=== PATIENT | male | born 1950 | race Caucasian/White ===

== ENCOUNTER → 2022-02-24 09:03 | Outpatient (BNVA) | payer MEDICARE, OTHER, SELFPAY | PROVIDERS: PCP Family Medicine; Visit Provider Psychiatry & Neurology Psychiatry | DX: Z79.899 Other long term (current) drug therapy (principal) | CPT/HCPCS: 80053; 80061; 80164; 83036; 84443; 85025 ==

== ENCOUNTER → 2022-03-31 14:30 | Outpatient (BNVA) | payer MEDICARE, SELFPAY | PROVIDERS: PCP Family Medicine; Referring Provider Family Medicine; Visit Provider Internal Medicine | DX: I95.9 Hypotension, unspecified (principal); F31.9 Bipolar disorder, unspecified; G47.33 Obstructive sleep apnea (adult) (pediatric); Z99.89 Dependence on other enabling machines and devices | CPT/HCPCS: 99203; 99204; 99213; 99214 ==

== ENCOUNTER 2022-04-01 12:19 | Emergency (ER) | payer MEDICARE, SELFPAY ==
[2022-04-01 12:28] VITALS: BP 123/75; PULSE 90; RESP 16; TEMP 37.6; O2SAT 96; BMI 36.1
--- NOTE | 2022-04-01 14:46 | W.ED.GENADLT ---
HPI - General Adult General: Chief complaint: Abdominal Pain Stated complaint: diverticulitis issues Time Seen by Provider: 04/01/22 12:42 History of Present Illness: Patient is a 71-year-old male with a history of prior diverticulitis, exploratory laparotomy for lysis of adhesions, appendectomy, pylorectomy who presents the emergency room for concerns of lower abdominal pain. Patient tells me he first began having lower pain around 9 PM yesterday. Patient states that the pain is sharp constant on both sides in the lower quadrant. Patient denies any urinary complaints including hematuria, polyuria or dysuria. Patient denies any flank pain or prior history of renal colic. Patient reports nausea with retching without any active vomiting. Patient has any fever/chills. Patient reports the pain is not worse with position or p.o. intake. Patient denies any diarrhea melena hematochezia. No other focal complaints at this time. No complaints. Onset:9pm yesterday Duration: ongoing Location:home Severity:moderate Associated symptoms: Reports nausea; Deny chest pain, dyspnea, rash, palpitations or vomiting Review of Systems Const: Denies: fever(s) or chills Eyes: Denies: change in vision ENMT: Denies: mouth pain Card: Denies: chest pain or palpitations Resp: Denies: dyspnea or non-productive cough GI: Reports: abdominal pain (+sharp lower abd pain) and nausea; Denies: vomiting or diarrhea : Denies: dysuria Musc: Denies: extremity pain Skin/Breast: Denies: rash or new lesions Neuro: Denies: weakness in extremities Psych: Reports: other (Normal mood) Saeed/Lymph: Denies: easy bruising PFSH ED PFSH: Medical History ADHD Bipolar 1 disorder Essential tremor History of diverticulitis Insomnia DERIK on CPAP Psychiatric care Restless legs Surgical History History of appendectomy History of cholecystectomy Social History Smoking and tobacco status: never smoked Physical Exam Const: COMMON NORMALS: alert HENMT: COMMON NORMALS: atraumatic HEAD & SCALP: atraumatic MOUTH: moist mucous membranes not abnormal Eye: COMMON NORMALS: EOMs intact bilaterally and conjunctivae normal CONJUNCTIVA: Yes conjunctivae normal Neck/C-Spine: COMMON NORMALS: full ROM and supple Resp: COMMON NORMALS: normal respiratory effort and clear to auscultation bilaterally AUSCULTATION: clear to auscultation bilaterally Cardio: COMMON NORMALS: regular rate RATE: regular rate GI: COMMON NORMALS: Soft to palpation PALPATION: Yes Soft to palpation OTHER: +Moderate RLQ and LLQ abd tenderness to palpation. +Voluntary guarding in the LLQ. NO guarding rebound, guarding, rigidity. No CVA tenderness to percussion. Neg Purcell/Neg McBurney's point tenderness, no suprabupic tenderness to palpation. Extremity: COMMON NORMALS: full ROM Neuro: SENSORIUM/ORIENTATION: Yes alert MOTOR EXAM: No Abnormal motor strength present and Other motor observations present (no focal motor deficits) Psych: COMMON NORMALS: speech normal SPEECH: Yes normal speech MOOD & AFFECT: Yes euthymic mood Course Vital Signs: Vital signs: Vital Signs Temperature 99.7 F H 04/01/22 12:28 Pulse Rate 90 04/01/22 12:28 Respiratory Rate 15 04/01/22 15:21 Blood Pressure 123/75 04/01/22 12:28 Pulse Oximetry 95 04/01/22 15:21 Oxygen Delivery Me thod 04/01/22 12:28 [facility] - General Adult Medical Decision Making Patient is a 71-year-old male with a history of prior diverticulitis, exploratory laparotomy for lysis of adhesions, appendectomy, pylorectomy who presents the emergency room for concerns of lower abdominal pain. Per history moderate and per palpation the right lower quadrant left lower quadrant. Patient is noted to have white count 13.0. Patient received IVF and morphine with improvement in pain. CT abdomen pelvis showed enterocolitis without any finding of appendicitis or diverticulitis. I discussed this finding with patient. Patient received GI cocktail is able to tolerate p.o. without difficulty. Considered appendicitis however unlikely at this time given lack of signs and sx's to suggest appendicitis as etiology. Pt counseled that appendicitis may later develop and given appendicitis precautions and instructed to return if any development of RLQ tenderness, worsening or continued abdominal pain, or any fevers, chills, nausea, vomiting, or any other concerning signs or symptoms. Rx tylenol PRN abd pain, maalox/pepcid PRN dyspepsia, and zofran PRN nausea/vomiting Disposition: Discharge. Patient counseled regarding diagnostic impression, treatment plan. Patient given ED strict return precautions to return for continuation, worsening, or development of new symptoms. Instructed to f/u w/ PCP regarding symptoms today. Patient verbalized understanding. Lab Data : 04/01/22 14:57 04/01/22 14:57 Radiology Impressions Abdomen/Pelvis CT 04/01/22 14:46 IMPRESSION: 1. Mildly prominent fluid in the small bowel and colon with some mild ascending colon wall thickening suspected perhaps reflecting a mild enterocolitis in the appropriate clinical setting. 2. Bibasilar atelectasis versus minimal infiltrate. 3. Minimal pneumobilia suspected in the left hepatic lobe. 4. Cholecystectomy. Laboratory Results WBC 13.0 10^3/uL (4.0-10.0) H 04/01/22 14:57 RBC 4.52 10^6/uL (4.1-5.3) 04/01/22 14:57 Hgb 15.0 g/dL (11.7-16.6) 04/01/22 14:57 Hct 43.0 % (42.0-52.0) 04/01/22 14:57 MCV 95.1 fl (80-94) H 04/01/22 14:57 MCH 33.2 pg (28.0-34.0) 04/01/22 14:57 MCHC 34.9 g/dL (30.0-36.0) 04/01/22 14:57 RDW 13.6 % (12.1-15.1) 04/01/22 14:57 Plt Count 114 10^3/cmm (130-400) L 04/01/22 14:57 MPV 10.9 fL (7.4-10.4) H 04/01/22 14:57 Neut % (Auto) 80.7 % 04/01/22 14:57 Lymph % (Auto) 8.6 % 04/01/22 14:57 [place] % (Auto) 10.3 % 04/01/22 14:57 Eos % (Auto) 0.0 % 04/01/22 14:57 Baso % (Auto) 0.2 % 04/01/22 14:57 Neut # (Auto) 10.46 10^3/uL (1.8-7.7) H 04/01/22 14:57 Lymph # (Auto) 1.1 10^3/uL (0.8-4.8) 04/01/22 14:57 [place] # (Auto) 1.3 10^3/uL (0.2-0.9) H 04/01/22 14:57 Eos # (Auto) 0.0 10^3/uL (0.0-0.8) 04/01/22 14:57 Baso # (Auto) 0.0 10^3/uL (0.0-0.1) 04/01/22 14:57 Nucleated RBC % (auto) 0 % 04/01/22 14:57 Nucleated RBCs # 0.0 /100WBC 04/01/22 14:57 Sodium 136 mmol/L (136-145) 04/01/22 14:57 Potassium 3.7 mmol/L (3.5-5.1) 04/01/22 14:57 Chloride 97 mmol/L (98-107) L 04/01/22 14:57 Carbon Dioxide 27 mmol/L (22-29) 04/01/22 14:57 Anion Gap 15.7 (5-19) 04/01/22 14:57 BUN 11 mg/dL (8-23) 04/01/22 14:57 Creatinine 0.7 mg/dL (0.7-1.2) 04/01/22 14:57 GFR Calculation 111.5 mL/min (90-130) 04/01/22 14:57 Glucose 141 mg/dL (65-115) H 04/01/22 14:57 Calculated Osmolality 284 mOsm/kg (285-295) L 04/01/22 14:57 Calcium 9.0 mg/dL (8.5-10.5) 04/01/22 14:57 Total Bilirubin 1.3 mg/dL (0.15-1.2) H 04/01/22 14:57 AST 18 U/L (0-40) 04/01/22 14:57 ALT 15 U/L (0-41) 04/01/22 14:57 Alkaline Phosphatase 77 U/L (40-130) 04/01/22 14:57 Total Protein 7.0 g/dL (6.6-8.7) 04/01/22 14:57 Albumin 3.9 g/dL (3.5-5.2) 04/01/22 14:57 Globulin 3.1 g/dL (1.3-4.6) 04/01/22 14:57 Lipase 10 U/L (13-60) L 04/01/22 14:57 Urine Color Yellow (Yellow) 04/01/22 15:00 Urine Appearance Clear (CLEAR) 04/01/22 15:00 Urine pH 6.5 (5-7) 04/01/22 15:00 Ur Specific [place] 1.010 (1.005-1.030) 04/01/22 15:00 Urine Protein Neg (Negative) 04/01/22 15:00 Urine Glucose (UA) 1+ (Normal) H 04/01/22 15:00 Urine Ketones 1+ (Negative) H 04/01/22 15:00 Urine Blood Neg (Negative) 04/01/22 15:00 Urine Nitrate Negative (Negative) 04/01/22 15:00 Urine Bilirubin Neg (Negative) 04/01/22 15:00 Urine Urobilinogen Neg mg/dL (Negative) 04/01/22 15:00 Ur Leukocyte Esterase Trace (Negative) H 04/01/22 15:00 Urine RBC None /hpf (0-2) 04/01/22 15:00 Urine WBC None /hpf (0-5) 04/01/22 15:00 Ur Squamous Epith Cells None /hpf (0-5) 04/01/22 15:00 Amorphous Sediment Not Reportable 04/01/22 15:00 Urine Bacteria None /hpf (NONE) 04/01/22 15:00 Imaging Data Other Imaging: Radiologist's impression: [address] [address] [address] Scan Report Signed Patient: Jordan Snider Unit #: [id number] : 1950 Age/Sex: 71 / M ADM Date: 04/01/22 Loc: ER Room/Bed: Attending Dr: Ordering Provider/Ordering MD: Richard Chun MD Date of Service: 04/01/22 Procedure(s): CT abdomen pelvis w con* [id number] Accession Number(s): [id number] Report Number: [id number] PROCEDURE INFORMATION: Exam: CT Abdomen And Pelvis With Contrast Exam date and time: 04/01/2022 3:28 PM Age: 71 years old Clinical indication: Abdominal pain; Generalized; Prior surgery; Surgery date: 6+ months; Surgery type: Appy, choleycystectomy; Additional info: Abd pain TECHNIQUE: Imaging protocol: Computed tomography of the abdomen and pelvis with contrast. Radiation optimization: All CT scans at this facility use at least one of these dose optimization techniques: automated exposure control; mA and/or kV adjustment per patient size (includes targeted exams where dose is matched to clinical indication); or iterative reconstruction. Contrast material: OMNI 350; Contrast volume: 100 ml; Contrast route: INTRAVENOUS (IV);? COMPARISON: No relevant prior studies available. RADIATION DOSE METRICS: Total DLP (mGy-cm): 1152.93 FINDINGS: Lungs: Bibasilar atelectasis versus minimal infiltrate. Liver: Normal. No mass. Gallbladder and bile ducts: Minimal pneumobilia suspected in the left hepatic lobe. Cholecystectomy. Pancreas: Normal. No ductal dilation. Spleen: Normal. No splenomegaly. Adrenal glands: Normal. No mass. Kidneys and ureters: Normal. No hydronephrosis. Stomach and bowel: Mildly prominent fluid in the small bowel and colon with some mild ascending colon wall thickening suspected perhaps reflecting a mild enterocolitis in the appropriate clinical setting. Appendix: No evidence of appendicitis. Intraperitoneal space: Unremarkable. No free air. No significant fluid collection. Vasculature: Unremarkable. No abdominal aortic aneurysm. Lymph nodes: Unremarkable. No enlarged lymph nodes. Urinary bladder: Unremarkable as visualized. Reproductive: Unremarkable as visualized. Bones/joints: Unremarkable. No acute fracture. Soft tissues: Unremarkable. CT/CT abdomen pelvis w con* [id number] IMPRESSION: 1. Mildly prominent fluid in the small bowel and colon with some mild ascending colon wall thickening suspected perhaps reflecting a mild enterocolitis in the appropriate clinical setting. 2. Bibasilar atelectasis versus minimal infiltrate. 3. Minimal pneumobilia suspected in the left hepatic lobe. 4. Cholecystectomy. ? Dictated By: Ash Hair MD Signed By: Ash Hair MD Signed Date/Time: 04/01/22 1555 DD/ 1528 Discharge Plan Discharge Patient Disposition: Home Clinical Impression: Abdominal pain Condition: Stable Prescriptions: New acetaminophen 500 mg tablet 500 mg PO Q6H PRN (Reason: pain) 5 Days Qty: 20 0RF Pepcid 20 mg tablet 20 mg PO BID PRN (Reason: abdominal pain) 10 Days Qty: 20 0RF ondansetron 4 mg tablet,disintegrating 4 mg PO TID PRN (Reason: nausea and vomiting) 4 Days Qty: 12 0RF Maalox Advanced 1,000-60 mg tablet,chewable 1 tab PO TID PRN (Reason: abdominal pain) 7 Days Qty: 21 0RF No Action aspirin 81 mg tablet,delayed release (DR/EC) 81 mg PO BEDTIME celecoxib 100 mg capsule 100 mg PO BID duloxetine 60 mg capsule,delayed release(DR/EC) 60 mg PO DAILY gabapentin 600 mg tablet 1,200 mg PO QPM tizanidine 4 mg capsule 4 mg PO BID methylphenidate HCl 10 mg tablet 10 mg PO TID 30 Days Qty: 90 0RF Depakote ER 250 mg tablet extended release 24 hr 1,250 mg PO BEDTIME eszopiclone 3 mg tablet 3 mg PO BEDTIME Vitamin B-12 50 mcg Tablet 50 mcg PO DAILY iron 325 mg (65 mg iron) Tablet 325 mg PO DAILY Vitamin D3 25 mcg (1,000 unit) Tablet 25 mcg PO DAILY Beet Root 1 tab PO DAILY Discharge Orders: Discharge ED (Routine); Ordered 04/01/22 Ordered By: Richard Chun Referrals: Salvatore Leon MD [Primary Care Provider] - Discharge Diet: Advance as tolerated Discharge Activity: Increase activity as tolerated Patient Instructions: Abdominal Pain (ED) Activity Restrictions/Additional Instructions: Please come back if you have any worsening abdominal pain, fever or chills, nausea or vomiting, diarrhea, blood in the stool, inability hold down liquid or solids, or any new concerning complaints. 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
[2022-04-01 15:03] LABS: Basophils % 0.2 %; Lymphocytes # 1.1 10^3/uL (0.8-4.8); Lymphocytes % 8.6 %; Mean Corpuscular HGB Conc 34.9 g/dL (30.0-36.0); Mean Corpuscular Hemoglobin 33.2 pg (28.0-34.0); Mean Corpuscular Volume 95.1 fl (80-94); Mean Platelet Volume 10.9 fL (7.4-10.4); Monocytes # 1.3 10^3/uL (0.2-0.9); Monocytes % 10.3 %; Neutrophils # 10.46 10^3/uL (1.8-7.7); Neutrophils % 80.7 %; Nucleated Red Blood Cells % 0 %; Platelet Count 114 10^3/cmm (130-400); Red Blood Count 4.52 10^6/uL (4.1-5.3); Red Cell Distribution Width 13.6 % (12.1-15.1)
[2022-04-01 15:16] LABS: Add Urine Microscopic? YES; Bilirubin Urine Neg (Negative); Blood Urine Neg (Negative); Glucose Urine UA 1+ (Normal); Ketones Urine 1+ (Negative); Leukocyte Esterase Urine Trace (Negative); Nitrate Urine Negative (Negative); Protein Urine Neg (Negative); Urine Appearance Clear (CLEAR); Urine Color Yellow (Yellow); Urobilinogen Urine Neg (Negative); pH Urine 6.5 (5-7)
[2022-04-01] MEDS: sodium chloride 0.9% 1,000 ML 999 ML IV (15:20)
[2022-04-01 15:21] VITALS: RESP 15; O2SAT 95
[2022-04-01 15:21] LABS: Add Urine Culture? No
[2022-04-01] MEDS: ondansetron 2 mg/ML SDV 2 mL 4 MG IVP (15:21)
[2022-04-01] MEDS: morphine 4 mg/mL SDV 1 mL IVP (15:21)
[2022-04-01 15:24] LABS: Alanine Aminotransferase 15 U/L (0-41); Albumin Level 3.9 g/dL (3.5-5.2); Alkaline Phosphatase 77 U/L (40-130); Anion Gap 15.7 (5-19); Aspartate Amino Transferase 18 U/L (0-40); Blood Urea Nitrogen 11 mg/dL (8-23); Carbon Dioxide 27 mmol/L (22-29); Chloride 97 mmol/L (98-107); Globulin 3.1 g/dL (1.3-4.6); Glomerular Filtration Rate 111.5 mL/min (90-130); Glucose 141 mg/dL (65-115); Lipase 10 U/L (13-60); Osmolality Calculated 284 mOsm/kg (285-295); Potassium 3.7 mmol/L (3.5-5.1); Sodium 136 mmol/L (136-145); Total Bilirubin 1.3 mg/dL (0.15-1.2)
[2022-04-01] MEDS: iohexol 350 mg/mL 100 mL Btl IV (15:34)
[2022-04-01 16:03] VITALS: BP 142/88; PULSE 89; RESP 15; O2SAT 97
[2022-04-01] MEDS: lidocaine 2% viscous 15 ML, aluminum-mag hydrox-simethicon 30 ML, sucralfate oral liq 1 GM PO (16:33)
== END 2022-04-01 16:38 | disposition home or self-care (01) ==
PROVIDERS: Family Medicine; Emergency Provider Emergency Medicine; PCP Family Medicine
DX: R10.9 Unspecified abdominal pain (principal); Z79.82 Long term (current) use of aspirin
CPT/HCPCS: 74177; 80053; 81001; 83690; 85025; 96361; 96374; 96375; 99285; J2270; J2405; J7030; Q9967

== ENCOUNTER → 2022-04-14 13:39 | Outpatient (BNVA) | payer MEDICARE, SELFPAY | PROVIDERS: PCP Family Medicine; Visit Provider Family Medicine | DX: R53.83 Other fatigue (principal); Z87.19 Personal history of other diseases of the digestive system; I95.9 Hypotension, unspecified; F90.9 Attention-deficit hyperactivity disorder, unspecified type | CPT/HCPCS: 82607; 83880; 85025; 86140 ==

== ENCOUNTER → 2022-08-08 12:41 | Outpatient (BNVA) | payer MEDICARE, SELFPAY | PROVIDERS: PCP Family Medicine; Visit Provider Psychiatry & Neurology Psychiatry | DX: Z79.899 Other long term (current) drug therapy (principal) | CPT/HCPCS: 80053; 80164; 85025 ==

== ENCOUNTER → 2022-09-12 09:41 | Outpatient (BNVA) | payer MEDICARE, SELFPAY | PROVIDERS: PCP Family Medicine; Visit Provider Nurse Practitioner Family | DX: M25.571 Pain in right ankle and joints of right foot (principal); E16.2 Hypoglycemia, unspecified | CPT/HCPCS: 73610; 82962; 83036 ==

== ENCOUNTER → 2022-09-30 10:09 | Outpatient (BNVA) | payer MEDICARE, SELFPAY | PROVIDERS: PCP Family Medicine; Visit Provider Internal Medicine | DX: I95.9 Hypotension, unspecified (principal); F31.9 Bipolar disorder, unspecified; G47.33 Obstructive sleep apnea (adult) (pediatric); Z99.89 Dependence on other enabling machines and devices; Z79.82 Long term (current) use of aspirin | CPT/HCPCS: 99214 ==

== ENCOUNTER 2022-10-17 15:58 | Outpatient (CLI) | payer MEDICARE, SELFPAY ==
--- NOTE | 2022-10-17 16:07 | XRR_ITS ---
PROCEDURE INFORMATION: Exam: XR Left Knee Exam date and time: 10/17/2022 4:09 PM Age: 72 years old Clinical indication: Injury or trauma; Fall; Blunt trauma; Knee; Left; Additional info: W19. Xxxa - unspecified fall, initial encounter TECHNIQUE: Imaging protocol: Radiologic exam of the left knee. Views: 3 views. COMPARISON: No relevant prior studies available. FINDINGS: Bones/joints: There is advanced osteoarthritis of the left knee with severe narrowing of the medial joint space in the patellofemoral space and with marginal osteophytes from all 3 compartments. No fracture is identified. Soft tissues: Normal. XR/XR knee LT 3V* [id number] IMPRESSION: 1. No fracture is identified. 2. Osteoarthritis.
--- NOTE | 2022-10-17 16:07 | XRR_ITS ---
PROCEDURE INFORMATION: Exam: XR Left Hip Exam date and time: 10/17/2022 4:09 PM Age: 72 years old Clinical indication: Hip pain; Left hip; Additional info: W19. Xxxa - unspecified fall, initial encounter TECHNIQUE: Imaging protocol: Radiologic exam of the left hip. Views: 2 or 3 views hip with pelvis when performed. COMPARISON: CT abdomen pelvis w con* [id number] 04/01/2022 3:28 PM FINDINGS: Bones/joints: There are degenerative changes in the lower lumbar spine. There is no evidence of fracture or dislocation. Soft tissues: Unremarkable. XR/XR hip LT 2-3V wo/w pel* [id number] IMPRESSION: There is no evidence of fracture or dislocation.
== END 2022-10-17 15:59 | disposition home or self-care (01) ==
LOC: RAD 16:07
PROVIDERS: PCP Family Medicine; Visit Provider Emergency Medicine
DX: M25.552 Pain in left hip (principal); Z91.81 History of falling; M17.12 Unilateral primary osteoarthritis, left knee
CPT/HCPCS: 73502; 73562

== ENCOUNTER → 2022-10-25 13:12 | Outpatient (BNVA) | payer MEDICARE, SELFPAY | PROVIDERS: PCP Family Medicine; Visit Provider Surgery | DX: Z86.010 Personal history of colon polyps (principal) | CPT/HCPCS: 99203 ==

== ENCOUNTER 2022-11-16 07:45 | Day surgery (SDC) | payer MEDICARE, SELFPAY ==
[2022-11-15 10:50] VITALS: BMI 37.0
[2022-11-16 08:03] VITALS: BP 138/81; PULSE 66; RESP 16; TEMP 36.2; O2SAT 99
[2022-11-16] MEDS: sodium chloride 0.9% 1,000 ML 30 ML IV (08:15)
--- NOTE | 2022-11-16 08:27 | W.PM.OPSUD ---
Surgery/Procedure H&P Update DATE OF PROCEDURE: November 16, 2022 DATE H&P PERFORMED: 10/25/22 H&P UPDATE INFORMATION: I have reviewed H&P completed within last 30 days, I have examined patient prior to procedure and No changes to prior documentation PLANNED PROCEDURE: Operation Date: 11/16/22 09:30 Proposed Procedures p Colonoscopy 65568,Z12.11, EGD 88434, D50.9(Not Applicable) - DO niranjan White EGD(Not Applicable) - Robb Elkins DO
--- NOTE | 2022-11-16 09:01 | P.ANESASSM_ITS ---
Pre-Anesthetic Assessment Height/Weight: Height 1.78 m Weight 117.027 kg Temp Pulse Resp BP Pulse Ox O2 Del Method 97.1 F L 66 16 138/81 99 Room Air 11/16/22 08:03 11/16/22 08:03 11/16/22 08:03 11/16/22 08:03 11/16/22 08:03 11/16/22 08:03 Preop Diagnosis: screening Operation Date: 11/16/22 09:30 Proposed Procedures p Colonoscopy 13651,Z12.11, EGD 91189, D50.9(Not Applicable) - Robb Elkins DO s EGD(Not Applicable) - Robb Elkins DO Familial anesthetic complications: none Last intake: Intake Last Liquid Date 11/15/22 Last Liquid Time 22:00 Last Solid Date 11/14/22 Last Solid Time 22:00 Social No alcohol and No tobacco Exam alert, oriented x 3, clear to auscultation bilaterally and regular rate & rhythm Airway Submandibular: within normal limits Cervical ROM: within normal limits Mallampati: Class II Dentition: false Pulmonary Sleep Apnea CV/HEM Congestive Heart Failure hypotension None reported Hepatic None reported GI Gastroesophageal Reflux Disease Metabolic None reported Musc/skel Weakness (cane) Neuropsych Bipolar Anesthetic Plan ASA status: 3 Anesthesia: MAC Medications/Allergies Home Medications Medication Instructions Recorded Confirmed Last Taken Type aspirin 81 mg tablet,delayed 81 mg PO BEDTIME 02/08/22 11/16/22 11/14/22 History release celecoxib 100 mg capsule 100 mg PO BID 02/08/22 11/16/22 11/14/22 History tizanidine 4 mg capsule 4 mg PO BID 02/08/22 11/16/22 11/15/22 History Beet Root 1 tab PO DAILY 04/01/22 11/16/22 11/15/22 History cholecalciferol (vitamin D3) 25 25 mcg PO DAILY 04/01/22 11/16/22 11/15/22 History mcg (1,000 unit) tablet (Vitamin D3) cyanocobalamin (vitamin B-12) 50 50 mcg PO DAILY 04/01/22 11/16/22 11/15/22 History mcg tablet (Vitamin B-12) gabapentin 600 mg tablet 1,200 mg PO QPM #60 tabs 06/03/22 11/16/22 11/15/22 Rx divalproex 250 mg tablet,extended 1,250 mg PO BEDTIME 30 days #150 06/22/22 11/16/22 11/15/22 Rx release 24 hr (Depakote ER) tabs duloxetine 60 mg capsule,delayed 60 mg PO DAILY 30 days #30 caps 06/22/22 11/16/22 11/15/22 Rx release eszopiclone 3 mg tablet 3 mg PO BEDTIME 30 days #30 tabs 06/22/22 11/16/22 11/15/22 Rx methylphenidate HCl 10 mg tablet 10 mg PO TID 30 days #90 tabs 06/22/22 11/16/22 11/15/22 Rx tadalafil 10 mg tablet (Cialis) 10 mg PO DAILY PRN sexual activity 08/18/22 11/16/22 3 Months Ago Rx #20 tabs ~08/18/22 hydrocodone 5 mg-acetaminophen 325 1 tab PO Q6H PRN pain 5 days #20 10/17/22 11/16/22 11/15/22 Rx mg tablet tabs prednisone 20 mg tablet 60 mg PO DAILY 5 days #15 tabs 10/17/22 11/16/22 11/15/22 Rx pantoprazole 40 mg tablet,delayed 40 mg PO BID 6 weeks #84 tabs 11/16/22 Unknown Rx release (Protonix) Allergies Allergy/AdvReac Type Severity Reaction Status Date / Time quetiapine [From Seroquel] Allergy ADR-Halluci Verified 11/16/22 07:59 nating bupropion [From Wellbutrin] AdvReac Intermediate tremor Verified 11/16/22 07:59 ziprasidone [From Geodon] AdvReac Intermediate tremor Verified 11/16/22 07:59 erythromycin Allergy Intermediate can't Uncoded 11/16/22 07:59 swallow Current Medications Generic Name Dose Route Start Last Admin Trade Name Freq PRN Reason Stop Dose Admin Sodium Chloride 1,000 mls @ 30 mls/hr 11/16/22 08:00 11/16/22 08:15 Sodium Chloride 0.9% IV 11/17/22 07:59 30 mls/hr .Q24H ALEXI Administration PFSH Anesthesia Medical History (Updated 10/25/22 @ 14:26 by Robb Elkins DO) ADHD Bipolar 1 disorder Essential tremor History of colon polyps History of diverticulitis Insomnia DERIK on CPAP 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
[2022-11-16 10:03] VITALS: BP 114/74; PULSE 66; RESP 14; TEMP 36.2; O2SAT 94
[2022-11-16 10:10] VITALS: BP 141/84; PULSE 73; RESP 16; O2SAT 98
[2022-11-16 10:19] VITALS: BP 137/86; PULSE 67; RESP 18; O2SAT 100
--- NOTE | 2022-11-16 14:12 | ANE.PACU2 ---
Inpatient post-anesthesia follow up: Airway intact: Yes Vital signs: Temperature 97.1 F Pulse Rate 67 Respiratory Rate 18 Blood Pressure 137/86 Pulse Oximetry 100 Oxygen Delivery Me thod Room Air Oxygen Flow Rate 3 Fraction of Inspir ed Oxygen Hydration adequate: Yes Nausea and vomiting: No Pain level: 2 Mental status: Baseline
== END 2022-11-16 10:50 | disposition home or self-care (01) ==
PROVIDERS: PCP Family Medicine; Visit Provider Surgery
PROC: 0DJD8ZZ Inspection of Lower Intestinal Tract, Via Natural or Artificial Opening Endoscopic (ICD-10-PCS; CPT 45378; principal; 2022-11-16 09:30)
PROC: 0DJ08ZZ Inspection of Upper Intestinal Tract, Via Natural or Artificial Opening Endoscopic (ICD-10-PCS; CPT 43235; 2022-11-16 09:30)
DX: Z86.010 Personal history of colon polyps (principal); K21.9 Gastro-esophageal reflux disease without esophagitis; R13.10 Dysphagia, unspecified; Z12.11 Encounter for screening for malignant neoplasm of colon; I50.9 Heart failure, unspecified; F31.9 Bipolar disorder, unspecified; Z79.82 Long term (current) use of aspirin; Z79.891 Long term (current) use of opiate analgesic; K29.70 Gastritis, unspecified, without bleeding; K57.30 Diverticulosis of large intestine without perforation or abscess without bleeding; D64.9 Anemia, unspecified
CPT/HCPCS: 43239; 88305; 88342; G0121; J2704; J7030

== ENCOUNTER → 2022-11-30 16:23 | Outpatient (BNVA) | payer MEDICARE, SELFPAY | PROVIDERS: PCP Family Medicine; Visit Provider Surgery | DX: Z09 Encounter for follow-up examination after completed treatment for conditions other than malignant neoplasm (principal) | CPT/HCPCS: 99212 ==

== ENCOUNTER → 2023-02-22 14:56 | Outpatient (BNVA) | payer MEDICARE, SELFPAY | PROVIDERS: PCP Family Medicine; Referring Provider Nurse Practitioner Family; Visit Provider Specialist | DX: M17.12 Unilateral primary osteoarthritis, left knee (principal) | CPT/HCPCS: 73560; 73565; 99204 ==

== ENCOUNTER 2023-03-06 06:00 | Outpatient (RCR) | payer MEDICARE, SELFPAY | END 2023-03-25 23:59 | disposition home or self-care (01) | LOC: MPT 06:00 | PROVIDERS: Visit Provider Specialist | DX: M25.562 Pain in left knee (principal) | CPT/HCPCS: 97110; 97162; G0283 ==

== ENCOUNTER 2023-03-26 06:00 | Outpatient (RCR) | payer MEDICARE, SELFPAY | END 2023-04-06 23:59 | disposition home or self-care (01) | LOC: MPT 06:00 | PROVIDERS: PCP Family Medicine; Visit Provider Specialist | DX: M25.562 Pain in left knee (principal) | CPT/HCPCS: 97110; G0283 ==

== ENCOUNTER → 2023-04-05 09:59 | Outpatient (BNVA) | payer MEDICARE, SELFPAY | PROVIDERS: PCP Family Medicine; Visit Provider Anesthesiology Pain Medicine | DX: M51.16 Intervertebral disc disorders with radiculopathy, lumbar region; M17.12 Unilateral primary osteoarthritis, left knee | CPT/HCPCS: 99204 ==

== ENCOUNTER 2023-04-19 10:34 | Emergency (ER) | payer MEDICARE, SELFPAY ==
--- NOTE | 2023-04-19 11:01 | CT_ITS ---
WS: [id number] CT HEAD NONCONTRAST HISTORY: left sided paresthesia TECHNIQUE: Contiguous axial imaging performed through the brain in 2.5 mm imaging. Bone and soft tiss ue windows. Sagittal and coronal reformats reviewed. All CT scans at [facility] use at least one of these dose optimization techniques: automated exposure control; mA and/or kV adjustment per pa tient size (includes targeted exams where dose is matched to clinical indication); or iterative recon struction. DLP: 1028.58 mGy.cm COMPARISON: None available. No acute intracranial hemorrhage, midline shift or mass effect. Mild to moderate atrophy and small vessel ischemic disease. No new area of sulcal effacement. Negativ e cerebellum. Ventricles: Normal size with no hydrocephalus. Paranasal sinuses: As visualized are clear. Mastoid air cells: Well pneumatized. Calvarium and scalp: Skull is intact with no soft tissue edema or swelling. IMPRESSION: 1. No acute intracranial hemorrhage or edema. 2. Mild to moderate symmetric atrophy and small vessel ischemic disease. No acute infarct.
--- NOTE | 2023-04-19 11:01 | XR_ITS ---
WS: [id number] Exam: XR chest 1V portable [id number] Date/Time of Exam: 04/19/2023 11:06 AM Reason For Exam: paresthesias No previous exams. The lungs are fully expanded and clear. Normal cardiomediastinal silhouette. No pleural effusions. Le voscoliosis of the upper T-spine. Prominent RIGHT main pulmonary artery probably due to AP technique and rotation of the chest. Surgical clips in the LEFT epigastric region. IMPRESSION: 1. No acute cardiopulmonary finding.
--- NOTE | 2023-04-19 11:01 | ECG_ITS ---
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 Measurements Intervals [place] Rate: 65 P: 37 MI: 159 QRS: 53 QRSD: 95 T: 55 QT: 403 QTc: 421 Interpretive Statements SINUS RHYTHM No previous ECG available for comparison Electronically Signed On 04-19-2023 19:07:48 CDT by Bob Diego M.D. [email or web address]
[2023-04-19 11:02] VITALS: BP 126/79; PULSE 69; RESP 18; TEMP 36.8; O2SAT 98; BMI 35.9
--- NOTE | 2023-04-19 11:11 | ED_ITS ---
HPI - Extremity Problem General: Chief complaint: Extremity Problem,Nontraumatic Stated complaint: left head feels like its asleep Time Seen by Provider: 04/19/23 10:54 Source: patient Mode of arrival: ambulatory Limitations: no limitations History of Present Illness: 72-year-old male who states that he has had numbness in his left hand and arm its been going on for 3 to 4 months. He states that seems to come and go he denies any worsening Or improving factors. He denies any headaches denies any neck pain denies any chest pain he has had no weakness no focal deficits Associated symptoms: Deny chest pain, fever(s) or rash Review of Systems Const: Denies: fever(s), chills, body aches or change in appetite Eyes: Denies: blurry vision or eye discomfort ENMT: Denies: throat pain or dental pain Card: Denies: chest pain Resp: Denies: dyspnea GI: Denies: abdominal pain, nausea, vomiting or diarrhea Musc: Denies: neck pain or back pain Skin/Breast: Denies: rash Neuro: Reports: numbness in extremities Saeed/Lymph: Denies: easy bruising All/Imm: Denies: urticaria PFSH ED PFSH: Medical History ADD (attention deficit disorder) ADHD Bipolar 1 disorder Essential tremor History of colon polyps History of diverticulitis Insomnia Insomnia DERIK on CPAP Other detention (current) drug therapy Psychiatric care Restless legs Surgical History History of appendectomy History of cholecystectomy History of colonoscopy History of esophagogastroduodenoscopy (EGD) History of excision of pilonidal cyst History of gastrostomy History of hernia repair Midline History of knee replacement History of laparotomy with lysis of adhesions History of pyloroplasty History of vagotomy History of ventral hernia repair Social History Smoking and tobacco/nicotine status: never used tobacco/nicotine Physical Exam Const: COMMON NORMALS: no acute distress, patient oriented x3 and healthy appearing HENMT: COMMON NORMALS: normocephalic and atraumatic HEAD & SCALP: normocephalic and atraumatic Neck/C-Spine: COMMON NORMALS: full ROM and supple Chest: COMMONS NORMALS: normal inspection of the chest and normal palpation of entire chest wall Resp: COMMON NORMALS: normal respiratory effort, No retractions, No use of accessory muscles and clear to auscultation bilaterally AUSCULTATION: clear to auscultation bilaterally Cardio: COMMON NORMALS: regular rate, regular rhythm and No murmurs present (Cardio) RATE: regular rate RHYTHM: regular rhythm GI: COMMON NORMALS: Normal to inspection, nondistended, normoactive bowel sounds present, Soft to palpation, non-tender and no masses PALPATION: Yes Soft to palpation Extremity: COMMON NORMALS: normal to inspection and full ROM Neuro: COMMON NORMALS: patient oriented x3, moves all extremities and no focal motor deficits CRANIAL NERVES: Yes CN normal except as noted SPEECH: speech normal GAIT: Yes Normal gait present Psych: COMMON NORMALS: mental status grossly normal, Normal thought process present and cooperative THOUGHT PROCESS: Normal thought process present Skin: COMMON NORMALS: no rashes or lesions noted and no wounds GENERAL SKIN EXAM: no rashes or lesions noted Course Vital Signs: Vital signs: Vital Signs Temperature 98 F 04/19/23 12:17 Pulse Rate 68 04/19/23 12:17 Respiratory Rate 18 04/19/23 12:17 Blood Pressure 126/83 04/19/23 12:17 Pulse Oximetry 98 04/19/23 12:17 Oxygen Delivery Me thod Room Air 04/19/23 11:34 MDM - Extremity (Nontraumatic) Medical Decision Making Patient presents here with numbness to left arm has been going on for months he has no acute focal deficits no weakness no signs of acute stroke he stable for discharge we will get him follow-up with neurology Medical Records I reviewed the patient's medical records. Lab Data I reviewed the patient's lab results. 04/19/23 11:10 04/19/23 11:10 Laboratory Results WBC 4.62 10^3/uL (3.29-11.43) 04/19/23 11:10 RBC 3.88 10^6/uL (3.85-5.65) 04/19/23 11:10 Hgb 11.00 g/dL (11.27-16.99) L 04/19/23 11:10 Hct 34.9 % (37-53) L 04/19/23 11:10 MCV 89.9 fl (82-101) 04/19/23 11:10 MCH 28.4 pg (27-33) 04/19/23 11:10 MCHC 31.5 g/dL (30-55) 04/19/23 11:10 RDW 13.2 % (12.1-15.1) 04/19/23 11:10 Plt Count 189 10^3/cmm (157-399) 04/19/23 11:10 MPV 10.2 fL (7.4-10.4) 04/19/23 11:10 Neut % (Auto) 36.6 % 04/19/23 11:10 Lymph % (Auto) 45.7 % 04/19/23 11:10 Rooks % (Auto) 11.0 % 04/19/23 11:10 Eos % (Auto) 5.6 % 04/19/23 11:10 Baso % (Auto) 0.9 % 04/19/23 11:10 Neut # (Auto) 1.69 10^3/uL (1.8-7.7) L 04/19/23 11:10 Lymph # (Auto) 2.1 10^3/uL (0.8-4.8) 04/19/23 11:10 Rooks # (Auto) 0.5 10^3/uL (0.2-0.9) 04/19/23 11:10 Eos # (Auto) 0.3 10^3/uL (0.0-0.8) 04/19/23 11:10 Baso # (Auto) 0.0 10^3/uL (0.0-0.1) 04/19/23 11:10 Nucleated RBC % (auto) 0 % 04/19/23 11:10 Nucleated RBCs # 0.0 /100WBC 04/19/23 11:10 APTT 29.8 SECONDS (23.9-36.7) 04/19/23 11:10 Sodium 140 mmol/L (136-145) 04/19/23 11:10 Potassium 4.2 mmol/L (3.5-5.1) 04/19/23 11:10 Chloride 103 mmol/L (98-107) 04/19/23 11:10 Carbon Dioxide 27 mmol/L (22-29) 04/19/23 11:10 Anion Gap 14.2 (5-19) 04/19/23 11:10 BUN 9 mg/dL (8-23) 04/19/23 11:10 Creatinine 0.7 mg/dL (0.7-1.2) 04/19/23 11:10 GFR Calculation Not Reportable 04/19/23 11:10 Glucose 99 mg/dL (65-115) 04/19/23 11:10 Calculated Osmolality 289 mOsm/kg (285-295) 04/19/23 11:10 Calcium 9.0 mg/dL (8.5-10.5) 04/19/23 11:10 Total Bilirubin 0.4 mg/dL (0.15-1.2) 04/19/23 11:10 AST 20 U/L (0-40) 04/19/23 11:10 ALT 11 U/L (0-41) 04/19/23 11:10 Alkaline Phosphatase 78 U/L (40-130) 04/19/23 11:10 Total Protein 6.4 g/dL (6.6-8.7) L 04/19/23 11:10 Albumin 4.2 g/dL (3.5-5.2) 04/19/23 11:10 Globulin 2.2 g/dL (1.3-4.6) 04/19/23 11:10 Valproic Acid 49.1 ug/mL (50-100) L 04/19/23 11:10 All radiology interpretation(s) finalized by discharge Discharge Plan Discharge Patient Disposition: Home Clinical Impression: Paresthesia Condition: Stable Prescriptions: No Action tadalafil [Cialis] 10 mg tablet 10 mg PO DAILY PRN (Reason: sexual activity) Qty: 20 3RF aspirin 81 mg tablet,delayed release (DR/EC) 81 mg PO BEDTIME Depakote ER 250 mg tablet extended release 24 hr 1,250 mg PO BEDTIME 30 Days Qty: 150 3RF duloxetine 60 mg capsule,delayed release(DR/EC) 60 mg PO DAILY 30 Days Qty: 30 3RF methylphenidate HCl 10 mg tablet 10 mg PO TID 30 Days Qty: 90 0RF trazodone 50 mg tablet 50 mg PO .qhs 30 Days Qty: 30 3RF furosemide [Lasix] 20 mg tablet 20 mg PO DAILY Qty: 5 0RF methylprednisolone acetate [Depo-Medrol] 40 mg/mL suspension 40 mg intra-articular ONCE Qty: 1 0RF bupivacaine (PF) 0.25 % (2.5 mg/mL) solution 2.5 mg intra-articular ONCE Qty: 5 0RF gabapentin 600 mg tablet 1,200 mg PO QPM Qty: 60 11RF tizanidine 4 mg capsule 4 mg PO BID Qty: 60 11RF celecoxib 100 mg capsule 100 mg PO BID Qty: 60 11RF Hold Instructions: Resume on 11/18/22. 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
[2023-04-19 11:17] LABS: Basophils % 0.9 %; Eosinophils # 0.3 10^3/uL (0.0-0.8); Eosinophils % 5.6 %; Hematocrit 34.9 % (37-53); Lymphocytes # 2.1 10^3/uL (0.8-4.8); Lymphocytes % 45.7 %; Mean Corpuscular HGB Conc 31.5 g/dL (30-55); Mean Corpuscular Hemoglobin 28.4 pg (27-33); Mean Corpuscular Volume 89.9 fl (82-101); Mean Platelet Volume 10.2 fL (7.4-10.4); Monocytes # 0.5 10^3/uL (0.2-0.9); Neutrophils # 1.69 10^3/uL (1.8-7.7); Neutrophils % 36.6 %; Nucleated Red Blood Cells % 0 %; Platelet Count 189 10^3/cmm (157-399); Red Blood Count 3.88 10^6/uL (3.85-5.65); Red Cell Distribution Width 13.2 % (12.1-15.1); White Blood Count 4.62 10^3/uL (3.29-11.43)
[2023-04-19 11:34] VITALS: BP 126/83; PULSE 68; RESP 18; O2SAT 98
[2023-04-19 11:40] LABS: Alanine Aminotransferase 11 U/L (0-41); Albumin Level 4.2 g/dL (3.5-5.2); Alkaline Phosphatase 78 U/L (40-130); Anion Gap 14.2 (5-19); Aspartate Amino Transferase 20 U/L (0-40); Blood Urea Nitrogen 9 mg/dL (8-23); Carbon Dioxide 27 mmol/L (22-29); Chloride 103 mmol/L (98-107); Globulin 2.2 g/dL (1.3-4.6); Glucose 99 mg/dL (65-115); Osmolality Calculated 289 mOsm/kg (285-295); Potassium 4.2 mmol/L (3.5-5.1); Sodium 140 mmol/L (136-145); Total Bilirubin 0.4 mg/dL (0.15-1.2); Total Protein 6.4 g/dL (6.6-8.7)
[2023-04-19 11:42] LABS: Valproic Acid Level 49.1 ug/mL (50-100)
[2023-04-19 11:54] LABS: Partial Thromboplastin Time 29.8 SECONDS (23.9-36.7)
[2023-04-19 12:17] VITALS: BP 126/83; PULSE 68; RESP 18; TEMP 36.6; O2SAT 98
--- NOTE | 2023-04-19 12:33 | DCPLANNER ---
Message sent to Neuro for follow-up of Paresthesias.
== END 2023-04-19 12:24 | disposition home or self-care (01) ==
PROVIDERS: Emergency Provider Emergency Medicine; PCP Family Medicine
DX: M51.16 Intervertebral disc disorders with radiculopathy, lumbar region (principal); M25.562 Pain in left knee; Z79.82 Long term (current) use of aspirin; R20.2 Paresthesia of skin
CPT/HCPCS: 20610; 36415; 70450; 71045; 80053; 80164; 85025; 85730; 93005; 99214; 99285; J1030; J3490

== ENCOUNTER → 2023-04-26 13:11 | Outpatient (BNVA) | payer MEDICARE, SELFPAY | PROVIDERS: PCP Family Medicine; Visit Provider Specialist | DX: G24.3 Spasmodic torticollis (principal); R20.2 Paresthesia of skin; R29.818 Other symptoms and signs involving the nervous system | CPT/HCPCS: 99205 ==

== ENCOUNTER 2023-05-08 10:34 | Outpatient (CLI) | payer MEDICARE, SELFPAY ==
--- NOTE | 2023-05-08 11:00 | MR_ITS ---
WS: [id number] MRI LUMBAR SPINE NONCONTRAST HISTORY: M54.16 - Radiculopathy, lumbar region COMPARISON: None available. TECHNIQUE: Sagittal and axial multisequence imaging is submitted. Marked cervical, thoracic and lumbar scoliosis. Reversal of the normal cervical lordosis. Deformity o f the cervical cord due to scoliosis. Mild S-shaped curvature lumbar spine. Posterior lumbar alignment is negative. Disc bases are narrowed and desiccated, most significant at L3-4, L4-5 and L5-S1. No fractures. Conus terminates normally at L1-2 disc level. L1-L2: Mild bilateral facet joint arthritis and ligamentum flavum arthritis. No high-grade stenosis L2-L3: Diffuse annular disc bulging with marked ligamentum flavum and facet arthritis. Small amount o f fluid in the facet joints. Moderate central, bilateral subarticular recess and mild foraminal steno sis. Increased fluid in the facet joints. L3-L4: Diffuse annular disc bulging, osteophytic ridging, ligamentum flavum and facet arthritis. Mild disc encroachment upon the subarticular recesses. Moderate RIGHT, mild LEFT foraminal stenosis and m ild central stenosis. L4-L5: Diffuse annular disc bulging, osteophytic ridging with ligamentum flavum and facet arthritis. Mild central, bilateral subarticular recess stenosis and RIGHT foraminal stenosis. L5-S1: Mild bilateral facet and ligamentum flavum arthritis. No high-grade stenosis centrally. There is very minimal disc bulging in the RIGHT foramen contacting the RIGHT L5 exiting nerve root. No paravertebral abnormalities. IMPRESSION: 1. Marked cervical and thoracic scoliosis with reversal the cervical lordosis. 2. Advanced degenerative disc disease at L3-4 through L5-S1. No fractures. 3. L2-3: Moderate central, bilateral subarticular recess and mild foraminal stenosis. Increased fluid in the facet joints. 4. L3-4: Moderate RIGHT and mild LEFT foraminal stenosis with mild central stenosis. 5. L4-5: Mild central, bilateral subarticular recess and RIGHT foraminal stenosis. 6. L5-S1: Minimal disc bulging contacting the RIGHT L5 exiting nerve root.
== END 2023-05-08 10:35 | disposition home or self-care (01) ==
LOC: RAD 10:35
PROVIDERS: PCP Family Medicine; Visit Provider Anesthesiology Pain Medicine
DX: M54.16 Radiculopathy, lumbar region (principal); M41.9 Scoliosis, unspecified; M48.061 Spinal stenosis, lumbar region without neurogenic claudication; M51.37 Other intervertebral disc degeneration, lumbosacral region
CPT/HCPCS: 72148

== ENCOUNTER → 2023-05-10 08:48 | Outpatient (BNVA) | payer MEDICARE, SELFPAY | PROVIDERS: PCP Family Medicine; Visit Provider Anesthesiology Pain Medicine | DX: M51.16 Intervertebral disc disorders with radiculopathy, lumbar region (principal); M25.562 Pain in left knee | CPT/HCPCS: 99214 ==

== ENCOUNTER → 2023-06-01 15:40 | Outpatient (BNVA) | payer MEDICARE, SELFPAY | PROVIDERS: Visit Provider Specialist | DX: G24.3 Spasmodic torticollis (principal); R29.898 Other symptoms and signs involving the musculoskeletal system; M79.602 Pain in left arm; R20.0 Anesthesia of skin; R20.2 Paresthesia of skin; G56.00 Carpal tunnel syndrome, unspecified upper limb | CPT/HCPCS: 95911 ==

== ENCOUNTER 2023-06-07 06:00 | Outpatient (RCR) | payer MEDICARE, SELFPAY | END 2023-06-25 23:59 | disposition home or self-care (01) | LOC: MPT 06:00 | PROVIDERS: Visit Provider Anesthesiology Pain Medicine | DX: M54.16 Radiculopathy, lumbar region (principal) | CPT/HCPCS: 97110; 97140; 97162; G0283 ==

== ENCOUNTER → 2023-06-15 11:56 | Outpatient (BNVA) | payer MEDICARE, SELFPAY | PROVIDERS: Visit Provider Specialist | DX: G24.3 Spasmodic torticollis (principal); R29.818 Other symptoms and signs involving the nervous system; G25.0 Essential tremor; G56.02 Carpal tunnel syndrome, left upper limb | CPT/HCPCS: 64616; J0585 ==

== ENCOUNTER → 2023-06-23 12:39 | Outpatient (BNVA) | payer MEDICARE, SELFPAY | PROVIDERS: Visit Provider Emergency Medicine | DX: R53.83 Other fatigue (principal) | CPT/HCPCS: 80053; 83880; 84443; 85025; 93005 ==

== ENCOUNTER 2023-06-26 06:00 | Outpatient (RCR) | payer MEDICARE, SELFPAY | END 2023-07-26 23:59 | disposition home or self-care (01) | LOC: MPT 06:00 | PROVIDERS: PCP Family Medicine; Visit Provider Anesthesiology Pain Medicine | DX: M54.16 Radiculopathy, lumbar region (principal) | CPT/HCPCS: 97110; 97140; G0283 ==

== ENCOUNTER → 2023-07-18 10:26 | Outpatient (BNVA) | payer MEDICARE, SELFPAY | PROVIDERS: PCP Family Medicine; Visit Provider Anesthesiology Pain Medicine | DX: M51.16 Intervertebral disc disorders with radiculopathy, lumbar region; M41.9 Scoliosis, unspecified; M51.36 Other intervertebral disc degeneration, lumbar region; M51.37 Other intervertebral disc degeneration, lumbosacral region; M48.061 Spinal stenosis, lumbar region without neurogenic claudication; M25.562 Pain in left knee; F31.9 Bipolar disorder, unspecified; F98.8 Other specified behavioral and emotional disorders with onset usually occurring in childhood and adolescence; N52.9 Male erectile dysfunction, unspecified; G47.33 Obstructive sleep apnea (adult) (pediatric); Z99.89 Dependence on other enabling machines and devices; I10 Essential (primary) hypertension | CPT/HCPCS: 99213; 99214 ==

== ENCOUNTER 2023-07-27 06:00 | Outpatient (RCR) | payer MEDICARE, SELFPAY | END 2023-07-27 23:59 | disposition home or self-care (01) | LOC: MPT 06:00 | PROVIDERS: PCP Family Medicine; Visit Provider Anesthesiology Pain Medicine | DX: M54.16 Radiculopathy, lumbar region (principal); G24.3 Spasmodic torticollis | CPT/HCPCS: 64616; 97110; 97140; G0283 ==

== ENCOUNTER → 2023-08-03 14:34 | Outpatient (BNVA) | payer MEDICARE, SELFPAY | PROVIDERS: Visit Provider Anesthesiology Pain Medicine | DX: M54.16 Radiculopathy, lumbar region (principal) | CPT/HCPCS: 62323 ==

== ENCOUNTER 2023-08-14 06:00 | Outpatient (RCR) | payer MEDICARE, SELFPAY | END 2023-08-24 23:59 | disposition home or self-care (01) | LOC: MPT 06:00 | PROVIDERS: Visit Provider Specialist | DX: G24.3 Spasmodic torticollis (principal) | CPT/HCPCS: 97110; 97162 ==

== ENCOUNTER → 2023-08-15 10:06 | Outpatient (BNVA) | payer MEDICARE, SELFPAY | PROVIDERS: Referring Provider Specialist; Visit Provider Student in an Organized Health Care Education/Training Program | DX: G56.03 Carpal tunnel syndrome, bilateral upper limbs (principal); M65.4 Radial styloid tenosynovitis [de Quervain] | CPT/HCPCS: 73130; 99204 ==

== ENCOUNTER → 2023-08-17 09:07 | Outpatient (BNVA) | payer MEDICARE, SELFPAY | PROVIDERS: PCP Family Medicine; Visit Provider Anesthesiology Pain Medicine | DX: M25.562 Pain in left knee; M51.16 Intervertebral disc disorders with radiculopathy, lumbar region | CPT/HCPCS: 99214 ==

== ENCOUNTER 2023-08-22 06:00 | Outpatient (RCR) | payer MEDICARE, SELFPAY | END 2023-08-24 23:59 | disposition home or self-care (01) | LOC: MPT 06:00 | PROVIDERS: PCP Family Medicine; Visit Provider Orthopaedic Surgery | DX: M17.12 Unilateral primary osteoarthritis, left knee (principal) | CPT/HCPCS: 97110; 97162; G0283 ==

== ENCOUNTER 2023-08-25 06:00 | Outpatient (RCR) | payer MEDICARE, SELFPAY | END 2023-09-24 23:59 | disposition home or self-care (01) | LOC: MPT 06:00 | PROVIDERS: PCP Family Medicine; Visit Provider Orthopaedic Surgery | DX: M17.12 Unilateral primary osteoarthritis, left knee (principal) | CPT/HCPCS: 97110; G0283 ==

== ENCOUNTER 2023-08-25 06:00 | Outpatient (RCR) | payer MEDICARE, SELFPAY | END 2023-09-24 23:59 | disposition home or self-care (01) | LOC: MPT 06:00 | PROVIDERS: PCP Family Medicine; Visit Provider Specialist | DX: G24.3 Spasmodic torticollis (principal) | CPT/HCPCS: 97110; 97140; G0283 ==

== ENCOUNTER 2023-09-25 06:00 | Outpatient (RCR) | payer MEDICARE, SELFPAY | END 2023-10-24 23:59 | disposition home or self-care (01) | LOC: MPT 06:00 | PROVIDERS: PCP Family Medicine; Visit Provider Specialist | DX: G24.3 Spasmodic torticollis (principal) | CPT/HCPCS: 97110; 97140; G0283 ==

== ENCOUNTER 2023-09-25 06:00 | Outpatient (RCR) | payer MEDICARE, SELFPAY | END 2023-10-24 23:59 | disposition home or self-care (01) | LOC: MPT 06:00 | PROVIDERS: PCP Family Medicine; Visit Provider Orthopaedic Surgery | DX: M17.12 Unilateral primary osteoarthritis, left knee (principal) | CPT/HCPCS: 97032; 97110; G0283 ==

== ENCOUNTER → 2023-10-10 10:21 | Outpatient (BNVA) | payer MEDICARE, SELFPAY | PROVIDERS: PCP Family Medicine; Visit Provider Anesthesiology Pain Medicine | DX: M51.16 Intervertebral disc disorders with radiculopathy, lumbar region; M48.061 Spinal stenosis, lumbar region without neurogenic claudication; M25.562 Pain in left knee; Z96.652 Presence of left artificial knee joint | CPT/HCPCS: 99214 ==

== ENCOUNTER → 2023-10-24 10:31 | Outpatient (BNVA) | payer MEDICARE, SELFPAY | PROVIDERS: PCP Family Medicine; Visit Provider Student in an Organized Health Care Education/Training Program | DX: M65.4 Radial styloid tenosynovitis [de Quervain]; G56.03 Carpal tunnel syndrome, bilateral upper limbs | CPT/HCPCS: 99214 ==

== ENCOUNTER 2023-10-25 06:00 | Outpatient (RCR) | payer MEDICARE, SELFPAY | END 2023-11-24 23:59 | disposition home or self-care (01) | LOC: MPT 06:00 | PROVIDERS: PCP Family Medicine; Visit Provider Orthopaedic Surgery | DX: M17.12 Unilateral primary osteoarthritis, left knee (principal) | CPT/HCPCS: 97110; G0283 ==

== ENCOUNTER 2023-10-25 06:00 | Outpatient (RCR) | payer MEDICARE, SELFPAY | END 2023-11-24 23:59 | disposition home or self-care (01) | LOC: MPT 06:00 | PROVIDERS: PCP Family Medicine; Visit Provider Specialist | DX: M54.16 Radiculopathy, lumbar region (principal) | CPT/HCPCS: 62323; 97110; 97140; 97530; G0283; J1010 ==

== ENCOUNTER → 2023-10-26 13:02 | Outpatient (BNVA) | payer MEDICARE, SELFPAY | PROVIDERS: PCP Family Medicine; Visit Provider Specialist | DX: G24.3 Spasmodic torticollis (principal); R29.818 Other symptoms and signs involving the nervous system | CPT/HCPCS: 64616 ==

== ENCOUNTER 2023-11-01 06:16 | Day surgery (SDC) | payer MEDICARE, SELFPAY ==
[2023-11-01 06:36] VITALS: BP 133/68; PULSE 75; RESP 16; TEMP 36.4; O2SAT 96; BMI 35.6
[2023-11-01] MEDS: acetaminophen 1,000 MG/100 ML PIGGYBACK 400 MG IV (06:46)
[2023-11-01] MEDS: sodium chloride 0.9% 1,000 ML 30 ML IV (06:46)
[2023-11-01 06:47] VITALS: BP 133/68
[2023-11-01] MEDS: scopolamine 1.5 Patch 1 PATCH TRANSDERMA (06:47)
[2023-11-01] MEDS: ketorolac 30 mg/mL INJ IVP (06:47)
--- NOTE | 2023-11-01 06:55 | P.ANESASSM_ITS ---
Pre-Anesthetic Assessment Height/Weight: Height 1.78 m Weight 112.491 kg Temp Pulse Resp BP Pulse Ox O2 Del Method 97.6 F 75 16 133/68 96 Room Air 11/01/23 06:36 11/01/23 06:36 11/01/23 06:36 11/01/23 06:47 11/01/23 06:36 11/01/23 06:36 Operation Date: 11/01/23 08:00 Proposed Procedures p Carpal Tunnel Release(Right) - Eugene Anthony DO s Dequervain Release(Right) - Eugene Whiteatt, DO Familial anesthetic complications: None Was Beta Medardo taken within 24 hours: N/A Was Clonidine taken within 24 hours: N/A Last intake: Intake Last Liquid Date 10/31/23 Last Liquid Time 23:15 Last Solid Date 10/31/23 Last Solid Time 23:15 Social No alcohol and No tobacco Exam alert, oriented x 3, clear to auscultation bilaterally and regular rate & rhythm Airway Mallampati: Class II Dentition: other (no teeth) Pulmonary Sleep Apnea CV/HEM Hypertension Anesthetic Plan ASA status: 2 Anesthesia: General Risk of > 500 ml blood loss (7ml/kg in children): No Medications/Allergies Home Medications Medication Instructions Recorded Confirmed Last Taken Type aspirin 81 mg tablet,delayed 81 mg PO BEDTIME 02/08/22 10/31/23 11/14/22 History release cholecalciferol (vitamin D3) 25 25 mcg PO DAILY 04/01/22 10/31/23 10/31/23 History mcg (1,000 unit) tablet (Vitamin D3) Glucose Tablets as directed 06/28/23 10/26/23 Unknown History ascorbic acid (vitamin C) 1,000 mg 1 g PO DAILY 06/28/23 10/31/23 10/31/23 History capsule loperamide 2 mg-simethicone 125 mg 1 tab PO Q3H PRN Pain 06/28/23 10/31/23 10/31/23 History tablet duloxetine 60 mg capsule,delayed 60 mg PO DAILY 30 days #30 caps 07/06/23 10/31/23 10/31/23 Rx release methylphenidate HCl 10 mg tablet 10 mg PO TID 30 days #90 tabs 07/06/23 10/31/23 10/31/23 Rx trazodone 50 mg tablet 50 mg PO .qhs 30 days #30 tabs 07/06/23 10/31/23 10/31/23 Rx onabotulinumtoxinA 100 unit 300 unit IM ONCE #3 ea 07/12/23 10/31/23 10/31/23 Rx solution for injection (Botox) famotidine 20 mg tablet (Acid 20 mg PO .prn 07/18/23 10/31/23 10/31/23 History Spa Manager (famotidine)) Hemavana Pain Relief Cream topical 07/20/23 10/26/23 Unknown History celecoxib 100 mg capsule 100 mg PO BID #60 caps 07/20/23 10/31/23 10/31/23 Rx gabapentin 600 mg tablet 1,200 mg (2 x 600 mg) PO QPM #60 07/20/23 10/31/23 10/31/23 Rx tabs sildenafil 100 mg tablet 100 mg PO DAILY PRN sexual 07/20/23 10/31/23 10/31/23 Rx activity #30 tabs tizanidine 4 mg capsule 4 mg PO BID #60 caps 07/20/23 10/31/23 10/31/23 Rx acetaminophen 325 mg tablet 325 mg PO QID PRN Pain 10/04/23 10/31/23 10/31/23 History loratadine 10 mg tablet 10 mg PO DAILY 10/04/23 10/31/23 10/31/23 History oxycodone 10 mg tablet 10 mg PO TID PRN Severe pain 7 10/17/23 10/26/23 Unknown Rx days #21 tabs oxycodone-acetaminophen 7.5 mg-325 1 tab PO TID PRN pain 7 days #20 10/23/23 10/31/23 10/31/23 Rx mg tablet tabs divalproex 250 mg tablet,extended 1,250 mg (5 x 250 mg) PO BEDTIME 10/30/23 10/31/23 10/31/23 Rx release 24 hr (Depakote ER) 30 days #150 tabs Allergies Allergy/AdvReac Type Severity Reaction Status Date / Time erythromycin base Allergy ALGY-Difficulty Verified 11/01/23 06:28 Swallowing quetiapine [From Seroquel] Allergy ADR-Halluci Verified 11/01/23 06:28 nating bupropion [From Wellbutrin] AdvReac Intermediate tremor Verified 11/01/23 06:28 ziprasidone [From Geodon] AdvReac Intermediate tremor Verified 11/01/23 06:28 Current Medications Generic Name Dose Route Start Last Admin Trade Name Carol PRN Reason Stop Dose Admin Sodium Chloride 1,000 mls @ 30 mls/hr 11/01/23 06:30 11/01/23 06:46 Sodium Chloride 0.9% IV 11/02/23 06:29 30 mls/hr .Q24H ALEXI Administration PFSH Anesthesia Medical History Essential hypertension Insomnia ADD (attention deficit disorder) History of colon polyps 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 History of diverticulitis Insomnia ADHD Psychiatric care DERIK on CPAP Restless legs Essential tremor Bipolar 1 disorder Surgical History History of knee replacement History of excision of pilonidal cyst History of gastrostomy History of esophagogastroduodenoscopy (EGD) History of vagotomy History of pyloroplasty History of laparotomy with lysis of adhesions History of ventral hernia repair History of hernia repair Midline History of colonoscopy History of appendectomy History of cholecystectomy Social History Smoking and tobacco/nicotine status: never used tobacco/nicotine Data Anesthesia Cardiac Studies: No Data to Display
--- NOTE | 2023-11-01 07:33 | W.PM.OPSUD ---
Surgery/Procedure H&P Update DATE OF PROCEDURE: November 01, 2023 DATE H&P PERFORMED: 10/24/23 H&P UPDATE INFORMATION: I have reviewed H&P completed within last 30 days, I have examined patient prior to procedure and No changes to prior documentation PREOP DIAGNOSIS: Right carpal tunnel syndrome , right wrist de Quervain's disease PRIMARY INDICATION FOR PROCEDURE: Right carpal tunnel syndrome, right wrist de Quervain's disease PLANNED PROCEDURE: Operation Date: 11/01/23 08:00 Proposed Procedures p Carpal Tunnel Release(Right) - Eugene Anthony DO s Dequervain Release(Right) - Eugene Anthony DO
[2023-11-01] MEDS: ceFAZolin 2,000 MG in sodium chloride 0.9% (plus) 50 ML 100 MG IV (07:55)
[2023-11-01] MEDS: lidocaine-epi 1% PF 1:200,000 30 mL SDV INJECTION (08:02)
[2023-11-01] MEDS: ROPivacaine 0.5% SDV 30 mL 150 MG INJECTION (08:02)
[2023-11-01 08:47] VITALS: BP 130/72; PULSE 82; RESP 16; TEMP 36.4; O2SAT 98
--- NOTE | 2023-11-01 08:47 | W.PM.BPON ---
Date of Procedure: [November 01, 2023] Surgeon: [Dr. Anthony DO] Black Top Spreader Machine Operator(s): [Oral Anthony PA-C] Procedure(s) performed: [Right carpal tunnel release Right wrist de Quervain's release] Findings of the procedure(s): [Right carpal tunnel syndrome, right wrist de Quervain's disease] Estimated blood loss: [5 ml] Specimen(s) removed: [n/a] Post-operative diagnosis: [Right carpal tunnel syndrome, right wrist de Quervain's disease]
--- NOTE | 2023-11-01 08:49 | PM.PACU ---
PACU note Narrative: Patient is a 73-year-old male just underwent a right wrist de Quervain's release and right carpal tunnel release. Patient transferred to PACU in stable condition. Pain is well controlled. Dressing on hand is dry and in place. Patient's fingers are warm and well-perfused. Patient can wiggle fingers. normal cap refill under 2 seconds. Patient has normal elbow range of motion. Sensation to hand intact. Exam: awake Disposition: discharged
--- NOTE | 2023-11-01 08:51 | P.OP_ITS ---
Operative Report Date of procedure: November 01, 2023 Surgeon: Eugene Anthony DO Single Pointed Operator: Oral Anthony PA-C: PA was necessary for assistance in this case with hand positioning to execute the procedure, retraction and protection of neurovascular structures as well as to assist with wound closure and dressing application. Procedure: Preoperative diagnosis: Right carpal tunnel syndrome Right wrist de Quervain's disease post-op diagnosis: Same Procedure done: 1.?Right carpal tunnel?release 2. Right wrist de Quervain's release Surgeon: Eugene Anthony DO Anesthesia: MAC (Local) Estimated blood loss: 5 mL Tourniquet time 14 minutes IV fluids: See anesthesia?record Complications: None Findings: See operative?report narrative Condition: stable Disposition: same day Brief History: Patient is a pleasant 73 year-old male with?right carpal tunnel syndrome and right wrist de Quervain's disease.? Patient has been worked up in the outpatient setting findings and physical examination consistent with this.? ? We detailed out patient's?risk benefits complication alternatives with surgical and nonsurgical treatment options. Through shared decision making, patient agrees to proceed with surgical intervention of the right carpal tunnel?release right wrist de Quervain's release.? Patient understands and agrees with current plan.? All questions answered.? Patient elects to proceed with surgical intervention with carpal tunnel?release. Procedure: Patient seen and evaluated in the preoperative holding area.? Consent was?reviewed and signed with patient.? Correct extremity was marked.? Patient was seen evaluated by the anesthesia department once cleared for surgery was brought back to the operative suite.? Patient was kept on [facility] in supine position all bony prominences were well-padded patient properly secured to the bed.??Right upper extremity was then placed onto an armboard.? A nonsterile tourniquet was applied to the?RIght upper arm.? Patient underwent anesthesia per the anesthesia department.? Patient's?Right upper extremity was then prepped and draped in standard orthopedic fashion.? Final timeout performed.? Patient?received appropriate preoperative antibiotics. Under sterile aseptic technique patient?received local anesthesia over the preplanned carpal tunnel incision site. Esmarch was used to exsanguinate the?Right upper extremity and tourniquet was insufflated to 250 mmHg. A standard mini open?Right carpal tunnel incision was made.? Starting distally at Bermudez's cardinal line in line with the fourth?ray extending proximally distal to the wrist crease centered over the carpal tunnel.? Sharp scalpel incision was made through skin and subcutaneous tissue.? Self- retaining?retractor was placed and the palmar fascia was identified.? This was then split longitudinally and direct visualization of the transverse carpal ligament was then made.? I then utilizing scalpel feathered through the trans verse carpal ligament until I entered the floor of the transverse carpal tunnel ligament into the carpal tunnel.? Next I switched to dissection scissors and completed my?release of the transverse carpal ligament distally with care to protect the?recurrent motor branch.? I completely?released into the palmar fat and until no entrapment was noted distally.? Care was made to protect the superficial palmar arch during my distal dissection.?? Next I utilized a nasal speculum placed on top of the transverse carpal ligament and utilize this to?retract the subcutaneous fat and tissue and under direct loupe magnification was able to identify the transverse carpal ligament.? Next I then placed a [place] underneath the transverse carpal tunnel ligament to protect the contents of the carpal tunnel and subsequently utilizing dissection scissors under loupe magnification completely?released the transverse carpal ligament proximally into the median antebrachial fascia.? Care was made to protect the p almar cutaneous branch by keeping my scissors curved ulnarly.? Once completely?released, I then placed my [place] and had appropriate decompression of the carpal tunnel proximally as well as distally.? I then inspected the contents of the carpal tunnel which showed an hourglass shape of the median nerve showing its compression.? No masses were noted.? Tendons appeared healthy.? Wound was then thoroughly irrigated.? Next I then proceeded with the right wrist de Quervain's release.? I marked out the first dorsal compartment a small longitudinal incision was made directly over this.? Sharp scalpel incision was made through skin only switch to Littler dissection scissors and protected the superficial branch of the radial nerve as well as neurovascular structures.? I then had direct visualization of the first dorsal compartment sharp scalpel incision I used to then simply incise the first dorsal compartment I switched dissection scissors to release this both proximally and distally to its entirety the EPB tendon did have a subsheath which was subsequently released as well.? I then subsequently used a rag nail and mobilized each tendon that verify no areas of entrapment and this completed the right wrist de Quervain's release. tourniquet deflated.? Hemostasis satisfactory with bipolar electrocautery.? I then closed the incision with interrupted nylon stitches.? Xeroform 4 x 4's and a bulky soft dressing was applied.? Patient was then awakened from anesthesia and taken to PACU in stable condition.? Patient tolerated procedure without complications. Disposition: Patient taken to PACU in stable condition?recovering well.? Dressing clean dry and intact.? Patient will?receive appropriate discharge instructions as well as pain medication postoperatively.? Patient to follow-up with me in the office in 2 weeks.? They understand they may be weightbearing as tolerated to the?right hand.? Patient should keep incision clean dry and intact.? Patient understands if any questions or concerns may contact the office.
[2023-11-01 08:55] VITALS: BP 137/70; PULSE 82; RESP 18; O2SAT 98
[2023-11-01 09:02] VITALS: BP 143/88; PULSE 77; RESP 18; O2SAT 97
[2023-11-01 09:22] VITALS: BP 115/70; PULSE 64; RESP 18; O2SAT 98
--- NOTE | 2023-11-01 09:40 | ANE.PACU2 ---
Inpatient post-anesthesia follow up: Airway intact: Yes Vital signs: Temperature 97.6 F Pulse Rate 64 Respiratory Rate 18 Blood Pressure 115/70 Pulse Oximetry 98 Oxygen Delivery Me thod Room Air Oxygen Flow Rate 6 Fraction of Inspir ed Oxygen Hydration adequate: Yes Nausea and vomiting: No Pain level: 1 Mental status: Baseline
== END 2023-11-01 09:40 | disposition home or self-care (01) ==
PROVIDERS: PCP Family Medicine; Visit Provider Student in an Organized Health Care Education/Training Program
PROC: (CPT 64721; principal; 2023-11-01 07:50)
PROC: (CPT 25000; 2023-11-01 07:50)
DX: G56.01 Carpal tunnel syndrome, right upper limb (principal); M65.4 Radial styloid tenosynovitis [de Quervain]; I10 Essential (primary) hypertension; Z79.82 Long term (current) use of aspirin; G47.33 Obstructive sleep apnea (adult) (pediatric)
CPT/HCPCS: 25000; 64721; J0131; J0690; J1885; J2704; J2795; J3010; J7030

== ENCOUNTER → 2023-11-14 08:59 | Outpatient (BNVA) | payer MEDICARE, SELFPAY | PROVIDERS: PCP Family Medicine; Visit Provider Family Medicine | DX: I10 Essential (primary) hypertension (principal); Z13.220 Encounter for screening for lipoid disorders; Z13.6 Encounter for screening for cardiovascular disorders | CPT/HCPCS: 80053; 80061; 85025 ==

== ENCOUNTER → 2023-11-16 08:10 | Outpatient (BNVA) | payer MEDICARE, SELFPAY | PROVIDERS: PCP Family Medicine; Visit Provider Physician Assistant | DX: G56.02 Carpal tunnel syndrome, left upper limb (principal); Z98.890 Other specified postprocedural states | CPT/HCPCS: 99214 ==

== ENCOUNTER → 2023-11-22 08:47 | Outpatient (BNVA) | payer MEDICARE, SELFPAY | PROVIDERS: PCP Family Medicine; Visit Provider Anesthesiology Pain Medicine | DX: M51.16 Intervertebral disc disorders with radiculopathy, lumbar region (principal); M25.562 Pain in left knee; M79.652 Pain in left thigh | CPT/HCPCS: 99214 ==

== ENCOUNTER 2023-11-25 06:00 | Outpatient (RCR) | payer MEDICARE, SELFPAY | END 2023-12-06 23:59 | disposition home or self-care (01) | LOC: MPT 06:00 | PROVIDERS: PCP Family Medicine; Visit Provider Specialist | DX: M54.16 Radiculopathy, lumbar region (principal); G24.3 Spasmodic torticollis | CPT/HCPCS: 97110; 97140; G0283 ==

== ENCOUNTER 2023-11-25 06:00 | Outpatient (RCR) | payer MEDICARE, SELFPAY | END 2023-11-29 23:59 | disposition home or self-care (01) | LOC: MPT 06:00 | PROVIDERS: PCP Family Medicine; Visit Provider Orthopaedic Surgery | DX: M17.12 Unilateral primary osteoarthritis, left knee (principal) | CPT/HCPCS: 97110; 97530; G0283 ==

== ENCOUNTER 2024-01-17 06:22 | Day surgery (SDC) | payer MEDICARE, SELFPAY ==
[2024-01-17] VITALS (7 sets, daily range): BP systolic 96–134; BP diastolic 54–81; PULSE 68–78; RESP 17–18; TEMP 36.3–36.8; O2SAT 92–97; BMI 35.6
[2024-01-17] MEDS: scopolamine 1.5 Patch 1 PATCH TRANSDERMA (06:50)
[2024-01-17] MEDS: ketorolac 30 mg/mL INJ IVP (06:51)
[2024-01-17] MEDS: sodium chloride 0.9% 1,000 ML 30 ML IV (06:53)
[2024-01-17] MEDS: acetaminophen 1,000 MG/100 ML PIGGYBACK 400 MG IV (06:53)
--- NOTE | 2024-01-17 07:09 | ANES.PREANE2 ---
Pre-Anesthetic Assessment Height/Weight: Height 1.78 m Weight 112.491 kg Temp Pulse Resp BP Pulse Ox O2 Del Method 97.3 F L 76 18 134/79 95 Room Air 01/17/24 06:39 01/17/24 06:39 01/17/24 06:39 01/17/24 06:39 01/17/24 06:39 01/17/24 06:40 Operation Date: 01/17/24 08:05 Proposed Procedures p Carpal Tunnel Release(Left) - Eugene Quitman, Familial anesthetic complications: None Was Beta Medardo taken within 24 hours: N/A Was Clonidine taken within 24 hours: N/A Last intake: Intake Last Liquid Date 01/16/24 Last Liquid Time 22:00 Last Solid Date 01/16/24 Last Solid Time 22:00 Social No alcohol and No tobacco Exam alert, oriented x 3, clear to auscultation bilaterally and regular rate & rhythm Airway Mallampati: Class II Dentition: other (none) Pulmonary Sleep Apnea CV/HEM Hypertension Neuropsych tremor, RLS, parkinson's sxs Anesthetic Plan ASA status: 3 Anesthesia: MAC Risk of > 500 ml blood loss (7ml/kg in children): No Medications/Allergies Home Medications Medication Instructions Recorded Confirmed Last Taken Type aspirin 81 mg tablet,delayed 81 mg PO BEDTIME 02/08/22 01/16/24 11/14/22 History release cholecalciferol (vitamin D3) 25 25 mcg PO DAILY 04/01/22 01/16/24 10/31/23 History mcg (1,000 unit) tablet (Vitamin D3) Glucose Tablets as directed 06/28/23 12/12/23 Unknown History ascorbic acid (vitamin C) 1,000 mg 1 g PO DAILY 06/28/23 01/16/24 10/31/23 History capsule loperamide 2 mg-simethicone 125 mg 1 tab PO Q3H PRN Pain 06/28/23 01/16/24 01/15/24 History tablet trazodone 50 mg tablet 50 mg PO .qhs 30 days #30 tabs 07/06/23 01/16/24 01/15/24 Rx onabotulinumtoxinA 100 unit 300 unit IM ONCE #3 ea 07/12/23 01/16/24 10/31/23 Rx solution for injection (Botox) famotidine 20 mg tablet (Acid 20 mg PO .prn 07/18/23 01/16/24 10/31/23 History Hydrate Control Tender (famotidine)) Hemavana Pain Relief Cream topical 07/20/23 12/12/23 Unknown History celecoxib 100 mg capsule 100 mg PO BID #60 caps 07/20/23 01/16/24 01/02/24 Rx gabapentin 600 mg tablet 1,200 mg (2 x 600 mg) PO QPM #60 07/20/23 01/16/24 01/15/24 Rx tabs sildenafil 100 mg tablet 100 mg PO DAILY PRN sexual 07/20/23 01/16/24 10/31/23 Rx activity #30 tabs tizanidine 4 mg capsule 4 mg PO BID #60 caps 07/20/23 01/17/24 01/16/24 Rx acetaminophen 325 mg tablet 325 mg PO QID PRN Pain 10/04/23 01/17/24 10/31/23 History loratadine 10 mg tablet 10 mg PO DAILY 10/04/23 01/16/24 10/31/23 History oxycodone-acetaminophen 7.5 mg-325 1 tab PO TID PRN pain 7 days #20 10/23/23 01/16/24 10/31/23 Rx mg tablet tabs divalproex 250 mg tablet,extended 1,250 mg (5 x 250 mg) PO BEDTIME 10/30/23 01/17/24 01/16/24 Rx release 24 hr (Depakote ER) 30 days #150 tabs tramadol 50 mg tablet 50 mg PO Q6H PRN pain #20 tabs 11/01/23 01/16/24 Unknown Rx duloxetine 60 mg capsule,delayed 60 mg PO DAILY 30 days #30 caps 11/27/23 01/17/24 01/16/24 Rx release methylphenidate HCl 10 mg tablet 10 mg PO TID 30 days #90 tabs 01/09/24 01/16/24 01/15/24 Rx Allergies Allergy/AdvReac Type Severity Reaction Status Date / Time erythromycin base Allergy ALGY-Difficulty Verified 01/17/24 06:30 Swallowing quetiapine [From Seroquel] Allergy ADR-Halluci Verified 01/17/24 06:30 nating bupropion [From Wellbutrin] AdvReac Intermediate tremor Verified 01/17/24 06:30 ziprasidone [From Geodon] AdvReac Intermediate tremor Verified 01/17/24 06:30 Current Medications Generic Name Dose Route Start Last Admin Trade Name Carol PRN Reason Stop Dose Admin Sodium Chloride 1,000 mls @ 30 mls/hr 01/17/24 06:30 01/17/24 06:53 Sodium Chloride 0.9% IV 01/18/24 06:29 30 mls/hr .Q24H ALEXI Administration PFSH Anesthesia Medical History Essential hypertension Insomnia ADD (attention deficit disorder) History of colon polyps Other correction (current) drug therapy History of diverticulitis Insomnia ADHD Psychiatric care DERIK on CPAP Restless legs Essential tremor Bipolar 1 disorder Surgical History History of knee replacement History of excision of pilonidal cyst History of gastrostomy History of esophagogastroduodenoscopy (EGD) History of vagotomy History of pyloroplasty History of laparotomy with lysis of adhesions History of ventral hernia repair History of hernia repair Midline History of colonoscopy History of appendectomy History of cholecystectomy Social History Smoking and tobacco/nicotine status: never used tobacco/nicotine Data Anesthesia Cardiac Studies: No Data to Display
--- NOTE | 2024-01-17 09:16 | W.PM.OPSFHP ---
Same Day Surgery H&P Indication for Procedure/HPI DATE OF PROCEDURE: January 17, 2024 CHIEF COMPLAINT/INDICATIONFOR SURGICAL PROCEDURE: Left carpal tunnel syndrome PREOP DIAGNOSIS: Left carpal tunnel syndrome PLANNED PROCEDURE: Operation Date: 01/17/24 08:05 Proposed Procedures p Carpal Tunnel Release(Left) - Eugene Anthony DO Medications/Allergies* Home Medications Medication Instructions Recorded Confirmed Type aspirin 81 mg tablet,delayed 81 mg PO BEDTIME 02/08/22 01/16/24 History release cholecalciferol (vitamin D3) 25 25 mcg PO DAILY 04/01/22 01/16/24 History mcg (1,000 unit) tablet (Vitamin D3) Glucose Tablets as directed 06/28/23 12/12/23 History ascorbic acid (vitamin C) 1,000 mg 1 g PO DAILY 06/28/23 01/16/24 History capsule loperamide 2 mg-simethicone 125 mg 1 tab PO Q3H PRN Pain 06/28/23 01/16/24 History tablet famotidine 20 mg tablet (Acid 20 mg PO .prn 07/18/23 01/16/24 History 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 Operator (famotidine)) Hemavana Pain Relief Cream topical 07/20/23 12/12/23 History acetaminophen 325 mg tablet 325 mg PO QID PRN Pain 10/04/23 01/17/24 History loratadine 10 mg tablet 10 mg PO DAILY 10/04/23 01/16/24 History Allergies/Adverse Reactions Allergy/AdvReac Type Severity Reaction Status Date / Time erythromycin base Allergy ALGY-Difficulty Verified 01/17/24 06:30 Swallowing quetiapine [From Seroquel] Allergy ADR-Halluci Verified 01/17/24 06:30 nating bupropion [From Wellbutrin] AdvReac Intermediate tremor Verified 01/17/24 06:30 ziprasidone [From Geodon] AdvReac Intermediate tremor Verified 01/17/24 06:30 Current Medications: Generic Name Dose Route Start Last Admin Trade Name Freq PRN Reason Stop Dose Admin Sodium Chloride 1,000 mls @ 30 mls/hr 01/17/24 06:30 01/17/24 06:53 Sodium Chloride 0.9% IV 01/18/24 06:29 30 mls/hr .Q24H ALEXI Administration Pertinent History/Comorbid Conditions* Medical History (Updated 12/12/23 @ 13:57 by Christina Dumont MD) Essential hypertension Insomnia ADD (attention deficit disorder) History of colon polyps 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 History of diverticulitis Insomnia ADHD Psychiatric care DERIK on CPAP Restless legs Essential tremor Bipolar 1 disorder Surgical History (Updated 11/16/23 @ 08:44 by JESSY Martini) History of knee replacement History of excision of pilonidal cyst History of gastrostomy History of esophagogastroduodenoscopy (EGD) History of vagotomy History of pyloroplasty History of laparotomy with lysis of adhesions History of ventral hernia repair History of hernia repair Midline History of colonoscopy History of appendectomy History of cholecystectomy Social History Smoking and tobacco/nicotine status: never used tobacco/nicotine Pertinent Exam Findings alert, oriented x 3, operative site marked and procedure specific exam findings Please refer to detailed orthopedic examination on 11/16/2023 listed below: Examination left upper extremity negative Tinel's and normal shoulder range of motion with no pain. Negative Tinel's at the left elbow with negative elbow flexion test. Positive Tinel's positive median nerve compression test positive Phalen's and thenar weakness as well as subtle atrophy noted of the left thumb. No intrinsic atrophy or weakness noted. Recommendations Surgery/Procedure today Other Plans: Plan to proceed to the OR today for left carpal tunnel release surgery. Patient understands the risk benefits complication alternatives of surgery as well as the ins and outs of the procedure the risk benefits complication alternatives surgery through shared decision make elects proceed with surgical intervention all questions have been answered at this time. Coding Level of Care Code Acute Code for Chg Fwd
[2024-01-17] MEDS: ceFAZolin 2,000 MG in sodium chloride 0.9% (plus) 50 ML 100 MG IV (09:19)
[2024-01-17] MEDS: lidocaine-epi 1% PF 1:200,000 30 mL SDV INJECTION (09:33)
[2024-01-17] MEDS: ROPivacaine 0.5% SDV 30 mL 150 MG INJECTION (09:33)
--- NOTE | 2024-01-17 09:52 | P.BOP_ITS ---
Date of Procedure: [] Surgeon: Eugene Anthony DO Technology Support Analyst(s): None Procedure(s) performed: Left carpal tunnel release Findings of the procedure(s): Left carpal tunnel syndrome underwent procedure as planned without issues or complications Estimated blood loss: 1 mL Specimen(s) removed: None Post-operative diagnosis: Left carpal tunnel syndrome
--- NOTE | 2024-01-17 09:53 | P.OP_ITS ---
Operative Report Date of procedure: January 17, 2024 Surgeon: Eugene Anthony DO Procedure: Preoperative diagnosis left carpal tunnel syndrome Post-op diagnosis: Same Procedure done: 1.?Left carpal tunnel release Surgeon: Eugene Anthony DO Anesthesia: MAC (Local) Estimated blood?loss: [1?]mL Tourniquet time [5 ]minutes IV fluids: See anesthesia record Complications: None Findings: See operative report narrative Condition: stable Disposition: same day Brief History: Patient is a pleasant [?73 ]year-old [?M]?with?left carpal tunnel syndrome.? Patient has been worked up in the outpatient setting findings and physical examination consistent with this.? Patient nerve?conduction studies consistent with carpal tunnel syndrome.? We detailed?out?patient's risk benefits complication alternatives with surgical and?nonsurgical treatment options. Through shared decision making, patient?agrees to proceed with surgical intervention of the?left carpal tunnel release .? Patient understands and agrees with current plan.? All questions answered.? Patient elects to proceed with surgical intervention with carpal tunnel release. Procedure: Patient seen and evaluated in the preoperative holding area.? Consent was reviewed and signed with patient.? Correct extremity was marked.? Patient was seen evaluated by the anesthesia department once cleared for surgery was brought back to the operative suite.? Patient was kept on [facility] in supine position all bony prominences were well-padded patient properly secured to the bed.??Left upper extremity was then placed onto an armboard.? A nonsterile t ourniquet was applied to the?left upper arm.? Patient underwent anesthesia per the anesthesia department.? Patient's?left upper extremity was then prepped and draped in standard orthopedic fashion.? Final timeout performed.? Patient received appropriate preoperative antibiotics. Under sterile aseptic technique patient received?local anesthesia over the preplanned carpal tunnel incision site. Esmarch was used to exsanguinate the?left upper extremity and tourniquet was insufflated to 250 mmHg. A standard mini open?left carpal tunnel incision was made.? Starting distally at Bermudez's cardinal?line in?line with the fourth ray extending proximally distal to the wrist crease centered over the carpal tunnel.? Sharp scalpel incision was made through skin and subcutaneous tissue.? Self-retaining retractor was placed and the palmar fascia was identified.? This was then split?longitudinally and direct visualization of the transverse carpal?ligament was then made.? I then utilizing scalpel feathered through the transverse carpal?ligament until I entered the floor of the transverse carpal tunnel?ligament into the carpal tunnel.? Next I switched to dissection scissors and completed my release of the transverse carpal?ligament distally with care to protect the recurrent motor branch.? I completely released into the palmar fat and until no entrapment was noted distally.? Care was made to protect the superficial palmar arch during my distal dissection.? Next I then placed a Eden underneath the transverse carpal tunnel?ligament to protect the contents of the carpal tunnel and subsequently utilizing dissection scissors under?loupe magnification completely released the transverse carpal?ligament proximally into the median antebrachial fascia.? Care was made to protect the palmar cutaneous branch by keeping my scissors curved ulnarly.? Once completely released, I then placed my Eden and had appropriate decompression of the carpal tunnel proximally as well as distally.? I then ins pected the contents of the carpal tunnel which showed an hourglass shape of the median nerve showing its compression.? No masses were noted.? Tendons appeared healthy.? Wound was then thoroughly irrigated.? Tourniquet deflated.? Hemostasis satisfactory with bipolar electrocautery.? I then closed the incision with interrupted nylon stitches.? Xeroform 4 x 4's and a bulky soft dressing was applied to the?left upper extremity.? Patient was then awakened from anesthesia and taken to PACU in stable condition.? Patient tolerated procedure without complications. Disposition: Patient taken to PACU in stable condition recovering well.? Dressing clean dry and intact.? Patient will receive appropriate discharge instructions as well as pain medication postoperatively.? Patient to follow-up with me in the office in 2 weeks.? They understand they may be weightbearing as tolerated to the?left hand.? Patient should keep incision clean dry and intact.? Patient understands if any questions or concerns may contact the office.
[2024-01-17] MEDS: TRAMadol 50 mg Tablet PO (10:27)
--- NOTE | 2024-01-17 10:45 | ANE.PACU2 ---
Inpatient post-anesthesia follow up: Airway intact: Yes Vital signs: Temperature 98.2 F Pulse Rate 72 Respiratory Rate 18 Blood Pressure 120/77 Pulse Oximetry 97 Oxygen Delivery Me thod Room Air Oxygen Flow Rate Fraction of Inspir ed Oxygen Hydration adequate: Yes Nausea and vomiting: No Pain level: 1 Mental status: Baseline
== END 2024-01-17 10:49 | disposition home or self-care (01) ==
PROVIDERS: PCP Family Medicine; Visit Provider Student in an Organized Health Care Education/Training Program
PROC: (CPT 64721; principal; 2024-01-17 08:05)
DX: G56.02 Carpal tunnel syndrome, left upper limb (principal); Z79.82 Long term (current) use of aspirin; I10 Essential (primary) hypertension; G47.33 Obstructive sleep apnea (adult) (pediatric)
CPT/HCPCS: 64721; J0131; J0690; J1885; J2704; J2795; J3010; J7030

== ENCOUNTER → 2024-02-06 08:25 | Outpatient (BNVA) | payer MEDICARE, SELFPAY | PROVIDERS: PCP Family Medicine; Visit Provider Physician Assistant | DX: Z98.890 Other specified postprocedural states (principal); G56.02 Carpal tunnel syndrome, left upper limb | CPT/HCPCS: 99024 ==

== ENCOUNTER → 2024-02-08 12:05 | Outpatient (BNVA) | payer MEDICARE, SELFPAY | PROVIDERS: PCP Family Medicine; Visit Provider Specialist | DX: G24.3 Spasmodic torticollis (principal); R29.818 Other symptoms and signs involving the nervous system | CPT/HCPCS: 64616 ==

== ENCOUNTER → 2024-02-19 09:55 | Outpatient (BNVA) | payer MEDICARE, SELFPAY | PROVIDERS: PCP Family Medicine; Visit Provider Family Medicine | DX: Z13.1 Encounter for screening for diabetes mellitus (principal); I10 Essential (primary) hypertension | CPT/HCPCS: 80048; 83036 ==

== ENCOUNTER → 2024-03-05 09:41 | Outpatient (BNVA) | payer MEDICARE, SELFPAY | PROVIDERS: PCP Family Medicine; Referring Provider Specialist; Visit Provider Specialist | DX: R26.89 Other abnormalities of gait and mobility (principal) | CPT/HCPCS: 80164 ==

== ENCOUNTER → 2024-05-17 11:16 | Outpatient (BNVA) | payer MEDICARE, SELFPAY | PROVIDERS: PCP Family Medicine; Visit Provider Specialist | DX: G24.3 Spasmodic torticollis (principal); R29.818 Other symptoms and signs involving the nervous system; R03.0 Elevated blood-pressure reading, without diagnosis of hypertension | CPT/HCPCS: 64616 ==

== ENCOUNTER → 2024-07-15 08:21 | Outpatient (BNVA) | payer MEDICARE, SELFPAY | PROVIDERS: PCP Family Medicine; Visit Provider Anesthesiology Pain Medicine | DX: M51.16 Intervertebral disc disorders with radiculopathy, lumbar region; M25.569 Pain in unspecified knee | CPT/HCPCS: 99214 ==

== ENCOUNTER → 2024-07-18 10:23 | Outpatient (BNVA) | payer MEDICARE, SELFPAY | PROVIDERS: PCP Family Medicine; Visit Provider Internal Medicine Cardiovascular Disease | DX: G47.30 Sleep apnea, unspecified (principal); I10 Essential (primary) hypertension; Z99.89 Dependence on other enabling machines and devices | CPT/HCPCS: 99213 ==

== ENCOUNTER → 2024-07-31 10:28 | Outpatient (BNVA) | payer MEDICARE, SELFPAY | PROVIDERS: PCP Family Medicine; Visit Provider Anesthesiology Pain Medicine | DX: M54.16 Radiculopathy, lumbar region (principal); M54.9 Dorsalgia, unspecified | CPT/HCPCS: 62323; J1010 ==

== ENCOUNTER → 2024-08-12 13:02 | Outpatient (BNVA) | payer MEDICARE, SELFPAY | PROVIDERS: PCP Family Medicine; Visit Provider Anesthesiology Pain Medicine | DX: M51.16 Intervertebral disc disorders with radiculopathy, lumbar region (principal); M25.569 Pain in unspecified knee | CPT/HCPCS: 99214 ==

== ENCOUNTER → 2024-08-16 11:25 | Outpatient (BNVA) | payer MEDICARE, SELFPAY | PROVIDERS: PCP Family Medicine; Visit Provider Specialist | DX: G24.3 Spasmodic torticollis (principal) | CPT/HCPCS: 64616 ==

== ENCOUNTER → 2024-11-11 12:43 | Outpatient (BNVA) | payer MEDICARE, SELFPAY | PROVIDERS: PCP Family Medicine; Visit Provider Anesthesiology Pain Medicine | DX: M54.9 Dorsalgia, unspecified (principal); M51.16 Intervertebral disc disorders with radiculopathy, lumbar region; M25.562 Pain in left knee | CPT/HCPCS: 99214 ==

== ENCOUNTER → 2024-11-15 11:22 | Outpatient (BNVA) | payer MEDICARE, SELFPAY | PROVIDERS: PCP Family Medicine; Visit Provider Specialist | DX: G24.3 Spasmodic torticollis (principal) | CPT/HCPCS: 64616; J9999 ==

== ENCOUNTER 2024-11-24 06:30 | Outpatient (RCR) | payer MEDICARE, SELFPAY | END 2024-12-23 23:55 | disposition home or self-care (01) | LOC: MPT 06:30 | PROVIDERS: PCP Family Medicine; Visit Provider Family Medicine | DX: M54.50 Low back pain, unspecified (principal); G89.29 Other chronic pain | CPT/HCPCS: 97162 ==

== ENCOUNTER → 2024-12-10 09:51 | Outpatient (BNVA) | payer MEDICARE, SELFPAY | PROVIDERS: PCP Family Medicine; Visit Provider Family Medicine | DX: I10 Essential (primary) hypertension (principal); R73.03 Prediabetes; Z13.220 Encounter for screening for lipoid disorders; Z13.6 Encounter for screening for cardiovascular disorders | CPT/HCPCS: 80053; 80061; 83036 ==

== ENCOUNTER → 2024-12-11 08:50 | Outpatient (BNVA) | payer MEDICARE, SELFPAY | PROVIDERS: PCP Family Medicine; Visit Provider Anesthesiology Pain Medicine | DX: M54.16 Radiculopathy, lumbar region (principal); M54.9 Dorsalgia, unspecified | CPT/HCPCS: 62323; J1010; J9999 ==

== ENCOUNTER → 2024-12-23 12:55 | Outpatient (BNVA) | payer MEDICARE, SELFPAY | PROVIDERS: PCP Family Medicine; Visit Provider Anesthesiology Pain Medicine | DX: M54.9 Dorsalgia, unspecified (principal); M25.569 Pain in unspecified knee; M51.16 Intervertebral disc disorders with radiculopathy, lumbar region | CPT/HCPCS: 99214 ==

== ENCOUNTER 2024-12-24 05:00 | Outpatient (RCR) | payer MEDICARE, SELFPAY | END 2025-01-23 23:59 | disposition home or self-care (01) | LOC: MPT 05:00 | PROVIDERS: PCP Family Medicine; Visit Provider Family Medicine | DX: M54.50 Low back pain, unspecified (principal); G89.29 Other chronic pain | CPT/HCPCS: 97110; 97140; G0283 ==

== ENCOUNTER 2024-12-24 06:30 | Outpatient (RCR) | payer MEDICARE, SELFPAY | END 2025-01-23 23:59 | disposition home or self-care (01) | LOC: MST 06:30 | PROVIDERS: PCP Family Medicine; Visit Provider Family Medicine | DX: G24.3 Spasmodic torticollis (principal) | CPT/HCPCS: 92507; 92523 ==

== ENCOUNTER 2025-01-24 06:30 | Outpatient (RCR) | payer MEDICARE, SELFPAY | END 2025-01-29 09:50 | disposition home or self-care (01) | LOC: MPT 06:30 | PROVIDERS: PCP Family Medicine; Visit Provider Family Medicine | DX: M54.59 Other low back pain (principal); G89.29 Other chronic pain | CPT/HCPCS: 97110; 97140; G0283 ==

== ENCOUNTER → 2025-02-20 10:38 | Outpatient (BNVA) | payer MEDICARE, SELFPAY | PROVIDERS: PCP Family Medicine; Visit Provider Specialist | DX: G24.3 Spasmodic torticollis (principal); R29.818 Other symptoms and signs involving the nervous system; R03.0 Elevated blood-pressure reading, without diagnosis of hypertension | CPT/HCPCS: 64616; J0585; J9999 ==

== ENCOUNTER → 2025-03-10 09:47 | Outpatient (BNVA) | payer MEDICARE, SELFPAY | PROVIDERS: PCP Family Medicine; Visit Provider Family Medicine | DX: I10 Essential (primary) hypertension (principal); R26.89 Other abnormalities of gait and mobility; R73.03 Prediabetes | CPT/HCPCS: 80053; 83036; 84443; 85025 ==

== ENCOUNTER → 2025-03-13 09:54 | Outpatient (BNVA) | payer MEDICARE, SELFPAY | PROVIDERS: PCP Family Medicine; Visit Provider Family Medicine | DX: G24.3 Spasmodic torticollis (principal); R26.89 Other abnormalities of gait and mobility; M47.819 Spondylosis without myelopathy or radiculopathy, site unspecified | CPT/HCPCS: 72040 ==

== ENCOUNTER → 2025-03-25 10:06 | Outpatient (BNVA) | payer MEDICARE, SELFPAY | PROVIDERS: PCP Family Medicine; Visit Provider Anesthesiology Pain Medicine | DX: M54.9 Dorsalgia, unspecified (principal); M51.16 Intervertebral disc disorders with radiculopathy, lumbar region | CPT/HCPCS: 99214 ==

== ENCOUNTER 2025-04-18 07:58 | Outpatient (CLI) | payer MEDICARE, SELFPAY ==
--- NOTE | 2025-04-18 08:00 | MR_ITS ---
WS: [id number] MRI BRAIN WITHOUT CONTRAST HISTORY: G24.3 - Spasmodic torticollis COMPARISON: None available. TECHNIQUE: Diffusion imaging, multiplanar T1, T2 and FLAIR imaging obtained. No evidence for acute infarct or hemorrhage. Zhang-white matter differentiation is normal. Moderate symmetric volume loss in the cerebrum and cerebellum. Mild supratentorial changes in the white matter surrounding the ventricles and in the basal ganglia. No large territory infarct. No lacunar infarct. No hemorrhage. No mass or signal abnormality near the cerebellopontine angle. Ventricles and extra-axial spaces are normal. No inferior displacement of cerebellar tonsils. The sella turcica and pituitary gland are unremarkable. Dural venous sinuses and [place] demonstrate no abnormality on this unenhanced studies. Paranasal sinuses: Mild mucoperiosteal thickening in the LEFT frontal and bilateral frontal ethmoid recesses. No air-fluid levels within the sinuses. Mastoid air cells: Normal. Calvarium and scalp: Intact. MR/MR head wo con* [id number] IMPRESSION: 1. No acute infarct or hemorrhage. 2. Moderate cerebral cerebral atrophy with mild small vessel changes. 3. LEFT frontal and bilateral frontal ethmoid sinus disease.
== END 2025-04-18 07:59 | disposition home or self-care (01) ==
LOC: RAD 07:59
PROVIDERS: PCP Family Medicine; Visit Provider Specialist
DX: G24.3 Spasmodic torticollis (principal); R26.9 Unspecified abnormalities of gait and mobility; R41.82 Altered mental status, unspecified; G31.9 Degenerative disease of nervous system, unspecified; J32.8 Other chronic sinusitis
CPT/HCPCS: 70551

== ENCOUNTER → 2025-04-29 10:09 | Outpatient (BNVA) | payer MEDICARE, SELFPAY | PROVIDERS: PCP Family Medicine; Visit Provider Anesthesiology Pain Medicine | DX: M51.16 Intervertebral disc disorders with radiculopathy, lumbar region (principal); G89.29 Other chronic pain | CPT/HCPCS: 99214 ==

== ENCOUNTER → 2025-05-29 12:44 | Outpatient (BNVA) | payer MEDICARE, SELFPAY | PROVIDERS: PCP Family Medicine; Visit Provider Specialist | DX: G24.3 Spasmodic torticollis (principal); R26.9 Unspecified abnormalities of gait and mobility; R29.818 Other symptoms and signs involving the nervous system; R03.0 Elevated blood-pressure reading, without diagnosis of hypertension | CPT/HCPCS: 64616; 99214; J9999 ==

== ENCOUNTER → 2025-06-05 11:39 | Outpatient (BNVA) | payer MEDICARE, SELFPAY | PROVIDERS: PCP Family Medicine; Visit Provider Nurse Practitioner | DX: M19.042 Primary osteoarthritis, left hand (principal) | CPT/HCPCS: 73130 ==